=== PATIENT | female | born 1945 | race Caucasian/White ===

== ENCOUNTER 2016-11-10 14:51 | Inpatient (IN) | payer MEDICARE, BC ==
[2016-11-10] VITALS (7 sets, daily range): BP systolic 99–131; BP diastolic 49–67; PULSE 8–82; RESP 16–21; TEMP 97.8–97.9; O2SAT 98–100
[~2016-11-10] VITALS: Ht 162.6 cm; Wt 45.9 kg
[2016-11-10] MEDS ORDERED: SODIUM CHLORIDE 0.9% FLUSH 10 ML FLUSH IVF PRN (16:30)
[2016-11-10] MEDS ORDERED: SODIUM CHLORID 0.9% 500 ML INJ 500 ML IV ONE (16:30)
[2016-11-10] MEDS ORDERED: ONDANSETRON HCL 4 MG/2 ML VIAL IV ONE ×2 (16:30→17:30)
[2016-11-10] MEDS ORDERED: ASPIRIN 81 MG CHEW TAB PO ONE (16:30)
[2016-11-10] MEDS ORDERED: MORPHINE SULFATE 4 MG/ML INJ IV PUSH ONE ×2 (16:30→17:30)
[2016-11-10 16:35] LABS: AUTOMATED NEUTROPHIL # 9.6 TH/MM3 (1.8-7.7); BASOPHIL % 0.3 % (0.0-2.0); HEMATOCRIT 35.1 % (35.0-46.0); HEMO FLAGS DIFF FINAL; LYMPH % 13.1 % (9.0-44.0); LYMPHOCYTE # 1.5 TH/MM3 (1.0-4.8); MEAN CELL VOLUME 93.3 FL (80.0-100.0); MEAN CORPUSCULAR HEMOGLOBIN 31.2 PG (27.0-34.0); MEAN CORPUSCULAR HGB CONC 33.4 % (32.0-36.0); MONO % 4.7 % (0.0-8.0); NEUT % 81.9 % (16.0-70.0); PLATELET COUNT 199 TH/MM3 (150-450); RED BLOOD COUNT 3.76 MIL/MM3 (4.00-5.30); RED CELL DISTRIBUTION WIDTH 12.4 % (11.6-17.2); WHITE BLOOD COUNT 11.6 TH/MM3 (4.0-11.0)
[2016-11-10 16:44] LABS: CHLORIDE 107 MEQ/L (98-107); POTASSIUM 3.4 MEQ/L (3.5-5.1); SODIUM (NA) 144 MEQ/L (136-145)
[2016-11-10 16:48] LABS: ANION GAP 10 MEQ/L (5-15); BICARBONATE 27.2 MEQ/L (21.0-32.0); BLOOD UREA NITROGEN 14 MG/DL (7-18); MAGNESIUM 2.2 MG/DL (1.5-2.5)
[2016-11-10 16:49] LABS: APTT (PATIENT) 22.4 SEC (24.3-30.1); PROTHROMBIN TIME - PATIENT 11.2 SEC (9.8-11.6)
[2016-11-10 16:51] LABS: ALT (GPT) 23 U/L (10-53); AST (GOT) 21 U/L (15-37); GLOMERULAR FILTRATION RATE 86 ML/MIN (>89)
[2016-11-10 16:52] LABS: TOTAL BILIRUBIN ADULT 0.8 MG/DL (0.2-1.0)
[2016-11-10 16:54] LABS: ALKALINE PHOSPHATASE 43 U/L (45-117)
--- NOTE | 2016-11-10 17:14 | RADHPO ---
EXAM DATE/TIME: 11/10/2016 16:24 [facility] COMPARISON: No previous studies available for comparison. INDICATIONS : Chest pain. MEDICAL HISTORY : Carcinoma, breast. SURGICAL HISTORY : Lumpectomy, right breast. ENCOUNTER: Initial ACUITY: 1 day PAIN SCORE: 4/10 LOCATION: Bilateral chest FINDINGS: A single view of the chest demonstrates the lungs to be symmetrically aerated without evidence of mas s, infiltrate or effusion. The cardiomediastinal contours are unremarkable. Osseous structures are intact. Mild degenerative changes and scoliosis of the thoracic spine are noted. CONCLUSION: No acute cardiopulmonary disease. Mild degenerative changes and scoliosis of the thoracic spine Oswaldo Ricks MD on November 10, 2016 at 17:11 Board Certified Radiologist. This report was verified electronically.
[2016-11-10] MEDS ORDERED: DIATRIZOATE MEGLUM/DIATRIZOATE SOD 9 ML CUP ONE (17:20)
--- NOTE | 2016-11-10 17:38 | PD ---
HPI Chief Complaint: Chest Pain Time Seen by Provider: 16:10 Travel History International Travel<30 days: No Contact w/Intl Traveler<30days: No Traveled to known affect area: No History of Present Illness HPI This 71-year-old woman presents to the emergency department complaining of burning chest pain that radiates down into the abdomen. It started around 10 AM this morning. It's been intermittent. Pain the abdomen is more prominent more severe at this time. She's had some nausea nausea with it. Since being in the ED she's had some vomiting as well. No shortness of breath. She otherwise had been feeling generally well and healthy. She has no significant past medical history except for remote breast cancer treated with surgery and radiation. No history of heart problems. Her only abdominal surgical history is a . No other complaints. History Past Medical History Narrative Medical History of breast cancer in the past, treated surgery and radiation Tetanus Vaccination: Unknown Influenza Vaccination: No Social History Alcohol Use: Yes (DAILY 2-3 mixed drinks) Tobacco Use: No Allergies-Medications (Allergen,Severity, Reaction): Coded Allergies: No Known Allergies (Unverified , 11/10/16) Reported Meds & Prescriptions Reported Meds & Active Scripts Active No Active Prescriptions or Reported Medications Review of Systems Except as stated in HPI: all other systems reviewed are Neg Physical Exam Narrative GENERAL: 71 year-old woman, appears uncomfortable but nontoxic. SKIN: Focused skin assessment warm/dry. HEAD: Atraumatic. Normocephalic. CARDIOVASCULAR: Regular rate and rhythm. No murmur appreciated. RESPIRATORY: No accessory muscle use. Clear to auscultation. Breath sounds equal bilaterally. GASTROINTESTINAL: Abdomen is flat and soft. Patient is a prominent right lower quadrant tenderness to palpation. There is no right upper quadrant tenderness. There is negative Frausto's. There is no real epigastric tenderness. MUSCULOSKELETAL: No obvious deformities. No edema. NEUROLOGICAL: Awake and alert. No obvious cranial nerve deficits. Motor grossly within normal limits. Normal speech. PSYCHIATRIC: Appropriate mood and affect; insight and judgment normal. Data Data Last Documented VS Vital Signs Date Time Temp Pulse Resp B/P Pulse Ox O2 Delivery O2 Flow Rate FiO2 11/10/16 18:24 72 18 99/49 100 Room Air 11/10/16 15:06 97.8 Orders Electrocardiogram (11/10/16 15:14) Electrocardiogram (11/10/16 16:20) Complete Blood Count With Diff (11/10/16 16:20) Comprehensive Metabolic Panel (11/10/16 16:20) Magnesium (Mg) (11/10/16 16:20) Prothrombin Time / Inr (Pt) (11/10/16 16:20) Act Partial Throm Time (Ptt) (11/10/16 16:20) Troponin I (11/10/16 16:20) Lipase (11/10/16 16:20) Chest, Single Ap (11/10/16 16:20) Ecg Monitoring (11/10/16 16:20) Bilateral Bp Monitoring (11/10/16 16:20) Iv Access Insert/Monitor (11/10/16 16:20) Oximetry (11/10/16 16:20) Oxygen Administration (11/10/16 16:20) Aspirin Chew (Aspirin Chew) (11/10/16 16:30) Sodium Chloride 0.9% Flush (Ns Flush) (11/10/16 16:30) Sodium Chlorid 0.9% 500 Ml Inj (Ns 500 M (11/10/16 16:30) Ct Abd/Pel W Iv Contrast(Rout) (11/10/16 ) Ed Poc Ultrasound (11/10/16 ) Morphine Inj (Morphine Inj) (11/10/16 16:30) Ondansetron Inj (Zofran Inj) (11/10/16 16:30) Electrocardiogram (11/10/16 ) Oral Contrast - Adult (11/10/16 16:41) Ondansetron Inj (Zofran Inj) (11/10/16 17:30) Morphine Inj (Morphine Inj) (11/10/16 17:30) Diatrizoate Liq ( Gastroview Liq) (11/10/16 17:20) Iohexol 350 Inj (Omnipaque 350 Inj) (11/10/16 18:30) Amylase (11/10/16 16:25) Consult General Surgery (11/10/16 ) Consult Armaan Nfs (11/10/16 ) (Hub Use Only)Inp Phy Cons/Ref (11/10/16 ) Admit Order (Ed Use Only) (11/10/16 ) Labs Laboratory Tests Test 11/10/16 16:25 White Blood Count 11.6 TH/MM3 Red Blood Count 3.76 MIL/MM3 Hemoglobin 11.7 GM/DL Hematocrit 35.1 % Mean Corpuscular Volume 93.3 FL Mean Corpuscular Hemoglobin 31.2 PG Mean Corpuscular Hemoglobin 33.4 % Concent Red Cell Distribution Width 12.4 % Platelet Count 199 TH/MM3 Mean Platelet Volume 8.4 FL Neutrophils (%) (Auto) 81.9 % Lymphocytes (%) (Auto) 13.1 % Monocytes (%) (Auto) 4.7 % Eosinophils (%) (Auto) 0.0 % Basophils (%) (Auto) 0.3 % Neutrophils # (Auto) 9.6 TH/MM3 Lymphocytes # (Auto) 1.5 TH/MM3 Monocytes # (Auto) 0.5 TH/MM3 Eosinophils # (Auto) 0.0 TH/MM3 Basophils # (Auto) 0.0 TH/MM3 CBC Comment DIFF FINAL Differential Comment Prothrombin Time 11.2 SEC Prothromb Time International 1.0 RATIO Ratio Activated Partial 22.4 SEC Thromboplast Time Sodium Level 144 MEQ/L Potassium Level 3.4 MEQ/L Chloride Level 107 MEQ/L Carbon Dioxide Level 27.2 MEQ/L Anion Gap 10 MEQ/L Blood Urea Nitrogen 14 MG/DL Creatinine 0.68 MG/DL Estimat Glomerular Filtration 86 ML/MIN Rate Random Glucose 123 MG/DL Calcium Level 8.6 MG/DL Magnesium Level 2.2 MG/DL Total Bilirubin 0.8 MG/DL Aspartate Amino Transf 21 U/L (AST/SGOT) Alanine Aminotransferase 23 U/L (ALT/SGPT) Alkaline Phosphatase 43 U/L Troponin I LESS THAN 0.02 NG/ML Total Protein 6.2 GM/DL Albumin 3.5 GM/DL Lipase 197 U/L [facility] Medical Decision Making Medical Screen Exam Complete: Yes Emergency Medical Condition: Yes Interpretation(s) My review of EKG: Normal sinus rhythm at a rate of 66, normal axis, normal intervals, some septal Q waves, her initial EKG there appears to be some nonspecific ST changes with inferolateral ST depressions that are slight. Possibly some septal elevations. This was repeated when she was having more pain, and the ST changes are unchanged. Overall this is nonspecific but somewhat concerning for heart disease. LABS: CBC remarkable for mild leukocytosis. CMP is unremarkable. Troponin negative. Lipase is normal. Chest x-ray: Negative. CT abdomen and pelvis: Diffuse enlargement in the pancreatic head with edema predominantly involving the inferior aspect of the pancreatic head as well as large mixed density collection extending inferiorly from the region of the pancreatic head into the lower abdomen measuring 12.2 x 10.3 x 8.1 cm. Findings are suggestive of acute hemorrhagic pancreatitis. Ascites throughout the abdomen and pelvis. Differential Diagnosis The appendicitis, cholecystitis, heart disease, PE, renal lithiasis, other Narrative Course Medical decision making INITIAL: 71-year-old woman presents emergent from with chest and abdominal pain. Right lower quadrant tenderness on exam. Wide differential diagnosis. Bedside ultrasound the gallbladder appears normal. She has no right upper quadrant tenderness. No history of kidney stones. No blood in the urine. Suspicious for appendicitis. We'll get CT the abdomen and pelvis. Heart disease also possible. Reassess. FINAL: 71 year-old woman, chest and abdominal pain, some vomiting. CT markedly abnormal with large mass/collection in the upper abdomen. Radiology favors pancreatitis. I think this is unlikely given the normal lipase. I think she may have an ovarian mass at it worst. Radiologist feels this is pretty high in the abdomen for that although possible. I spoke with Dr. Dennis who reviewed the CT imaging. He will consult on patient. I spoke with Dr. Espinal, will admit the patient. Patient still having vomiting, and significant abdominal pain. Diagnosis Primary Impression: Abdominal pain Qualified Code: R10.31 - Right lower quadrant abdominal pain Additional Impression: Abdominal mass Qualified Code: R19.05 - Periumbilical mass Admitting Information Admitting Physician Requests: Observation Scripts No Active Prescriptions or Reported Meds Chris Price MD November 10, 2016 17:38
[2016-11-10] MEDS ORDERED: IOHEXOL 350 MG/ML 10 ML VIAL (for RAD DIAG) IV ONE (18:30)
--- NOTE | 2016-11-10 19:07 | RADHPO ---
EXAM DATE/TIME: 11/10/2016 18:22 [facility] COMPARISON: No previous studies available for comparison. INDICATIONS : Right lower quadrant pain. IV CONTRAST: 100 cc Omnipaque 350 (iohexol) IV ORAL CONTRAST: Partial prescribed oral contrast ingested. RADIATION DOSE: 5.42 CTDIvol (mGy) MEDICAL HISTORY : Carcinoma, breast. SURGICAL HISTORY : None. ENCOUNTER: Initial ACUITY: 1 day PAIN SCALE: 4/10 LOCATION: Bilateral abdomen. TECHNIQUE: Volumetric scanning of the abdomen and pelvis was performed. Using automated exposure control and ad justment of the mA and/or kV according to patient size, radiation dose was kept as low as reasonably achievable to obtain optimal diagnostic quality images. FINDINGS: There is evidence of diffuse enlargement of the pancreatic head with extensive edema involving the pa ncreatic head predominantly the inferior aspect of the pancreatic head as well as a mixed density col lection extending inferiorly measuring 10.3 x 12.2 x 8.1 cm. The findings suggest acute hemorrhagic pancreatitis with large hemorrhagic or phlegmonous collection extending inferiorly. There is also as cites extending throughout the abdomen and pelvis. Correlation with amylase is recommended to confir m acute pancreatitis. The liver, gallbladder, spleen, adrenal glands and kidneys are unremarkable. The abdominal aorta and inferior vena cava are unremarkable. No significant lymphadenopathy is noted. The urinary bladder is unremarkable. The uterus is also unremarkable. The visualized lung bases are clear. Degenerativ e changes are noted within the lumbar spine. The findings were called to Dr. Price at 1850 hours on . CONCLUSION: 1. Diffuse enlargement involving the pancreatic head with edema predominantly involving the inferior aspect of the pancreatic head as well as large mixed density collection extending inferiorly from th e region of the pancreatic head into the lower abdomen measuring 12.2 x 10.3 x 8.1 cm. The findings are suggestive of acute hemorrhagic pancreatitis. Correlation with amylase level is suggested for co nfirmation. 2. Ascites throughout the abdomen and pelvis. 3. Dr. Price was called with the findings of the examination at 1850 hours on 11/10/2016. Oswaldo Ricks MD on November 10, 2016 at 18:48 Board Certified Radiologist. This report was verified electronically.
[2016-11-10 19:42] LABS: AMYLASE 71 U/L (25-115)
[2016-11-10] MEDS: SODIUM CHLOR 0.9% 1000 ML INJ 1,000 ML IV SCH (20:41)
[2016-11-10] MEDS ORDERED: BISACODYL 10 MG SUPP RECTAL PRN (20:45)
[2016-11-10] MEDS ORDERED: ACETAMINOPHEN 325 MG TAB PO PRN (20:45)
[2016-11-10] MEDS: SODIUM CHLORIDE 0.9% FLUSH 10 ML FLUSH IV FLUSH SCH (21:00)
[2016-11-10] MEDS: SODIUM CHLORIDE 0.9% FLUSH 10 ML FLUSH IV FLUSH PRN (22:35)
[2016-11-10] MEDS: ONDANSETRON HCL 4 MG/2 ML VIAL IVP PRN (22:36)
[2016-11-11 04:33] VITALS: BP 102/52; PULSE 90; RESP 19; TEMP 97.8; O2SAT 99
[2016-11-11 06:02] LABS: ALT (GPT) 21 U/L (10-53); AMYLASE 51 U/L (25-115); ANION GAP 9 MEQ/L (5-15); AST (GOT) 21 U/L (15-37); BLOOD UREA NITROGEN 15 MG/DL (7-18); CHLORIDE 109 MEQ/L (98-107); GLOMERULAR FILTRATION RATE 87 ML/MIN (>89); POTASSIUM 3.9 MEQ/L (3.5-5.1); SODIUM (NA) 142 MEQ/L (136-145)
[2016-11-11 06:03] LABS: PROTHROMBIN TIME - PATIENT 10.8 SEC (9.8-11.6)
[2016-11-11 06:04] LABS: ALKALINE PHOSPHATASE 39 U/L (45-117)
[2016-11-11 06:05] LABS: BASOPHIL % 0.2 % (0.0-2.0); HEMATOCRIT 28.9 % (35.0-46.0); HEMO FLAGS DIFF FINAL; LYMPHOCYTE # 0.8 TH/MM3 (1.0-4.8); MEAN CELL VOLUME 96.1 FL (80.0-100.0); MEAN CORPUSCULAR HEMOGLOBIN 31.7 PG (27.0-34.0); MONO % 7.6 % (0.0-8.0); NEUT % 84.2 % (16.0-70.0); PLATELET COUNT 181 TH/MM3 (150-450); RED BLOOD COUNT 3.01 MIL/MM3 (4.00-5.30); RED CELL DISTRIBUTION WIDTH 13.1 % (11.6-17.2); WHITE BLOOD COUNT 10.6 TH/MM3 (4.0-11.0)
[2016-11-11] MEDS: SODIUM CHLOR 0.9% 1000 ML INJ 1,000 ML IV SCH ×2 (06:39→16:32)
[2016-11-11 08:01] VITALS: BP 112/56; PULSE 83; RESP 18; O2SAT 98
[2016-11-11] MEDS: SODIUM CHLORIDE 0.9% FLUSH 10 ML FLUSH IV FLUSH SCH ×2 (09:00→21:00)
[2016-11-11] MEDS ORDERED: LORazepam 1 MG TAB PO PRN (10:15)
[2016-11-11] MEDS ORDERED: FLUMAZENIL 0.5 MG/5 ML VIAL IV PUSH PRN (10:15)
[2016-11-11] MEDS ORDERED: LORazepam 2 MG/ML VIAL IV PUSH PRN ×4 (10:15)
[2016-11-11] MEDS ORDERED: PANTOPRAZOLE SODIUM 40 MG VIAL IV PUSH ONE (10:15)
[2016-11-11] MEDS ORDERED: LORazepam 2 MG TAB PO PRN (10:15)
--- NOTE | 2016-11-11 10:54 | HHI.HP ---
HPI Service [facility] Primary Care Physician Smitha Aleman MD Admission Diagnosis abdominal pain, vomiting, abdominal mass Diagnoses: Chief Complaint: Abdominal pain with associated nausea and vomiting Travel History International Travel<30 Days: No Contact w/Intl Traveler <30 Da: No Traveled to Known Affected Are: No History of Present Illness Mrs. Tyler is a 71-year-old female with a known medical history of right breast cancer, status post lumpectomy and radiation seven years ago, who presented to the ED with complaints of mid-epigastric abdominal pain that started yesterday morning around 10am while patient was at work. Patient reports pain was burning and pressure-like in nature, intermittent throughout the day about a 5-6/10 on pain scale not interfering with her daily work activities. At around 2pm patient noticed the pain to be more constant in nature with associated nausea, becoming a 10/10 on pain scale and seemed to worsen with mobilization. She was immediately brought into ED for assessment. She remembers eating a light breakfast of cereal that morning and feeling normal prior to the pain starting. Since presentation to the ED patient states pain has diminished, status post Morphine IV and Roxicodone. Also patient did have one bout of vomiting last night. Denies any recent fever, chills, shortness of breath, cough, blurry vision, dizziness, diarrhea or blood in stool. Patient also denies any new changes to medications, denies any recent injury or any hot/cold sensitivity. Review of Systems Gastrointestinal: COMPLAINS OF: Abdominal pain, Nausea, Vomiting Except as stated in HPI: all other systems reviewed are Neg Past Family Social History Past Medical History Right breast cancer status post lumpectomy and radiation in 2009. Past Surgical History Tubal ligation x 1 Reported Medications Active No Active Prescriptions or Reported Medications Allergies: Coded Allergies: No Known Allergies (Unverified , 11/10/16) Active Ordered Medications Current Medications Medications (Trade) Dose Ordered Sig/Ankur Route Start Time Stop Time Status Last Admin (NS 1000 ml Inj) 1,000 ml @ 100 mls/hr Q10H IV 11/10/16 20:31 11/11/16 06:39 (NS Flush) 2 ml UNSCH PRN IV FLUSH 11/10/16 20:45 11/10/16 22:35 (NS Flush) 2 ml BID IV FLUSH 11/10/16 21:00 (Zofran Inj) 4 mg Q6H PRN IVP 11/10/16 20:45 11/10/16 22:36 (Dulcolax Supp) 10 mg DAILY PRN RECTAL 11/10/16 20:45 (Tylenol) 650 mg Q6H PRN PO 11/10/16 20:45 (Morphine Inj) 2 mg Q3H PRN IV 11/10/16 20:45 (Roxicodone) 5 mg Q4H PRN PO 11/10/16 20:45 11/10/16 22:37 Family History Paternal medical history significant for NV at the age of 7676 years old. Denies any significant maternal medical history. Social History Patient lives at home with . Denies any past or present tobacco use. Does admit to drinking 2-3 captain ritu and diet cokes at home each night before dinner. Denies any illicit drug use. Physical Exam Vital Signs Vital Signs Date Time Temp Pulse Resp B/P Pulse Ox O2 Delivery O2 Flow Rate FiO2 11/11/16 08:01 83 18 112/56 98 11/11/16 04:33 97.8 90 19 102/52 99 11/10/16 22:07 97.9 78 21 131/60 99 11/10/16 21:28 78 18 99 11/10/16 21:27 78 18 118/53 99 Room Air 11/10/16 19:44 79 18 118/56 100 Room Air 11/10/16 18:24 72 18 99/49 100 Room Air 11/10/16 16:47 68 16 125/67 100 Room Air 11/10/16 16:20 16 98 Room Air 11/10/16 16:20 98 Room Air 11/10/16 15:06 97.8 82 16 116/66 100 Physical Exam GENERAL: Well-nourished, well-developed patient, in no apparent distress. SKIN: No rashes, ecchymoses or lesions. Warm and dry. HEENT: Atraumatic. Normocephalic. Pupils equal round and reactive. Extraocular motions intact. No scleral icterus. No injection or drainage. Nose without bleeding. Throat without erythema, tonsillar hypertrophy or exudate. Uvula midline. Airway patent. NECK: Supple. Trachea midline. No JVD or lymphadenopathy. CARDIOVASCULAR: Regular rate and rhythm. No murmurs appreciated. RESPIRATORY: Clear to auscultation. Breath sounds equal bilaterally. No wheezes , rales, or rhonchi. GASTROINTESTINAL: Abdomen soft, nondistended. Mild tenderness to palpation to right lower quadrant. No hepato-splenomegaly, or palpable masses. No guarding. MUSCULOSKELETAL: Extremities without clubbing, cyanosis, or edema. No joint tenderness, effusion, or edema noted. NEUROLOGICAL: Awake and alert. Cranial nerves II through XII intact. Motor and sensory grossly within normal limits. Five out of 5 muscle strength in all muscle groups. Normal speech. Laboratory Laboratory Tests Test 11/10/16 11/11/16 16:25 05:20 White Blood Count 11.6 10.6 Red Blood Count 3.76 3.01 Hemoglobin 11.7 9.5 Hematocrit 35.1 28.9 Mean Corpuscular Volume 93.3 96.1 Mean Corpuscular Hemoglobin 31.2 31.7 Mean Corpuscular Hemoglobin 33.4 33.0 Concent Red Cell Distribution Width 12.4 13.1 Platelet Count 199 181 Mean Platelet Volume 8.4 9.0 Neutrophils (%) (Auto) 81.9 84.2 Lymphocytes (%) (Auto) 13.1 8.0 Monocytes (%) (Auto) 4.7 7.6 Eosinophils (%) (Auto) 0.0 0.0 Basophils (%) (Auto) 0.3 0.2 Neutrophils # (Auto) 9.6 9.0 Lymphocytes # (Auto) 1.5 0.8 Monocytes # (Auto) 0.5 0.8 Eosinophils # (Auto) 0.0 0.0 Basophils # (Auto) 0.0 0.0 CBC Comment DIFF FINAL DIFF FINAL Differential Comment Prothrombin Time 11.2 10.8 Prothromb Time International 1.0 1.0 Ratio Activated Partial 22.4 Thromboplast Time Sodium Level 144 142 Potassium Level 3.4 3.9 Chloride Level 107 109 Carbon Dioxide Level 27.2 24.0 Anion Gap 10 9 Blood Urea Nitrogen 14 15 Creatinine 0.68 0.67 Estimat Glomerular Filtration 86 87 Rate Random Glucose 123 115 Calcium Level 8.6 7.9 Magnesium Level 2.2 Total Bilirubin 0.8 1.0 Aspartate Amino Transf 21 21 (AST/SGOT) Alanine Aminotransferase 23 21 (ALT/SGPT) Alkaline Phosphatase 43 39 Troponin I LESS THAN 0.02 Total Protein 6.2 5.7 Albumin 3.5 3.3 Amylase Level 71 51 Lipase 197 149 Result Diagram: 11/11/16 0520 11/11/16 0520 Imaging Last Impressions Chest X-Ray 11/10/16 1620 Signed Impressions: Service Date/Time: Thursday, November 10, 2016 16:24 - CONCLUSION: No acute cardiopulmonary disease. Mild degenerative changes and scoliosis of the thoracic spine Oswaldo Ricks MD Abdomen/Pelvis CT 11/10/16 0000 Signed Impressions: Service Date/Time: Thursday, November 10, 2016 18:22 - CONCLUSION: 1. Diffuse enlargement involving the pancreatic head with edema predominantly involving the inferior aspect of the pancreatic head as well as large mixed density collection extending inferiorly from the region of the pancreatic head into the lower abdomen measuring 12.2 x 10.3 x 8.1 cm. The findings are suggestive of acute hemorrhagic pancreatitis. Correlation with amylase level is suggested for confirmation. 2. Ascites throughout the abdomen and pelvis. 3. Dr. Price was called with the findings of the examination at 1850 hours on 11/10/2016. Oswaldo Ricks MD Assessment and Plan Assessment and Plan Mrs. Tyler is a 71-year-old female with a known medical history of right breast cancer, status post lumpectomy and radiation seven years ago, who presented to the ED with complaints of mid-epigastric abdominal pain that started yesterday morning around 10am while patient was at work. Patient reports pain was burning and pressure-like in nature, intermittent throughout the day about a 5-6/10 on pain scale. At around 2pm patient noticed the pain to be more constant in nature with associated nausea, becoming a 10/10 on pain scale and seemed to worsen with mobilization and immediately brought into ED for assessment. Abdominal mass: suspect acute hemorrhagic pancreatitis or pancreatic mass with associated abdominal pain, nausea and vomiting. - Abdomen/Pelvis CT reviewed, reveals diffuse enlargement involving the pancreatic head with edema predominantly involving the inferior aspect of the pancreatic head as well as large mixed density collection extending inferiorly from the region of the pancreatic head into the lower abdomen measuring 12.2 x 10.3 x 8.1 cm. The findings are suggestive of acute hemorrhagic pancreatitis; ascites throughout the abdomen and pelvis. - Consult general surgery, appreciate input. - Consult GI, appreciate input. - Keep NPO at this time. - Trend H&H. - Amylase/ Lipase WNL. - Start PPI. Protonix 80 mg IV bolus x 1. Protonix 40 mg IV BID. - Control pain: Roxicodone PO scheduled per pain scale. Morphine IV PRN per pain scale. - Continue IVF NS at 100 ml/hr. Normocytic, normochromic anemia - Hemoglobin 11.7/Hematocrit 35.1 on presentation --> today 11/11 Hematocrit 9.5/Hemoglobin 28.9. - No signs or symptoms of bleeding at this time. - Monitor closely. Mild leukocytosis: WBC 11.6 at presentation, today 11/11 10.6. Afebrile at this time. Monitor. Alcohol use - Place patient on CIWA protocol. - Monitor withdrawal symptoms. Seizure precautions. - Ativan PRN. Nausea and vomiting: Zofran PRN. DVT prophylaxis: SCDs/TEDs Written by Kiarra Barron, acting as scribe for Dr. Fofana on 11/11/16 at 10:39. This note was transcribed by scribe [Kiarra Barron]. I, Dr. Ramone Fofana personally performed the history, physical exam, and medical decision making; and confirmed the accuracy of the information in the transcribed note. Authenticated by Dr. Ramone Fofana on 11/13/16 at 09:10. Code Status Full code Discussed Condition With Patient Kiarra Barron November 11, 2016 10:54 Ramone Fofana MD November 13, 2016 09:10
[2016-11-11 11:53] LABS: REVIEW FLAG FINAL
--- NOTE | 2016-11-11 12:03 | PD.CONS ---
HPI History of Present Illness This is a 71 year old female who presented to the ER for severe epigastric abdominal pain. Patient had felt mild epigastric pain in the morning and then the pain progressively worsened by the early afternoon. Abdominal pain was associated with nausea and vomiting. Denies hematemesis or hematochezia. Report she was having normal BM. Today patient states epigastric pain has improved. Continues to have some nausea today, but no emesis. Had routine screening colonoscopy [address] Lali Mejia, normal per patient. Never had EGD. Denies GERD symptoms. Patient with history of right breast cancer, s/p lumpectomy and radiation 7 years ago. (Rina Werner) PFSH Past Medical History -Right breast cancer, s/p lumpectomy and radiation in 2009. Past Surgical History -Tubal ligation - x 1 (Rina Werner) Coded Allergies: No Known Allergies (Unverified , 11/10/16) Medications Current Medications Medications (Trade) Dose Ordered Sig/Ankur Route PRN Reason Start Time Stop Time Status Last Admin Dose Admin Sodium Chloride (NS 1000 ml Inj) 1,000 ml @ 100 mls/hr Q10H IV 11/10/16 20:31 11/11/16 06:39 Sodium Chloride (NS Flush) 2 ml UNSCH PRN IV FLUSH FLUSH AFTER USING IV ACCESS 11/10/16 20:45 11/10/16 22:35 Sodium Chloride (NS Flush) 2 ml BID IV FLUSH 11/10/16 21:00 Ondansetron HCl (Zofran Inj) 4 mg Q6H PRN IVP NAUSEA OR VOMITING 11/10/16 20:45 11/10/16 22:36 Bisacodyl (Dulcolax Supp) 10 mg DAILY PRN RECTAL CONSTIPATION 11/10/16 20:45 Acetaminophen (Tylenol) 650 mg Q6H PRN PO FEVER/PAIN SCALE 1 TO 2 11/10/16 20:45 Morphine Sulfate (Morphine Inj) 2 mg Q3H PRN IV Pain 6-10 11/10/16 20:45 Oxycodone HCl (Roxicodone) 5 mg Q4H PRN PO PAIN SCALE 3 TO 5 11/10/16 20:45 11/10/16 22:37 Flumazenil (Romazicon Inj) 0.2 mg Q1M PRN IV PUSH SEE LABEL COMMENTS 11/11/16 10:15 Lorazepam (Ativan) 1 mg Q4H PRN PO CIWA 8 - 10 11/11/16 10:15 Lorazepam (Ativan Inj) 1 mg Q4H PRN IV PUSH CIWA 8 - 10 11/11/16 10:15 Lorazepam (Ativan) 2 mg Q2H PRN PO CIWA 11-14 11/11/16 10:15 Lorazepam (Ativan Inj) 2 mg Q2H PRN IV PUSH CIWA 11-14 11/11/16 10:15 Lorazepam (Ativan Inj) 2 mg Q1H PRN IV PUSH CIWA 15-20 11/11/16 10:15 Lorazepam (Ativan Inj) 2 mg Q15M PRN IV PUSH CIWA > 20 11/11/16 10:15 Pantoprazole Sodium (Protonix Inj) 40 mg Q12H IV PUSH 11/11/16 22:00 Family History OR (paternal) Social History Tobacco: Denies ETOH: 2-3 captain ritu and diet coke drinks per night Illicit Drugs: Denies Patient lives at home with . (Rina Werner) Review of Systems Constitutional: DENIES: Diaphoretic episodes, Fatigue, Fever, Weight gain, Weight loss, Chills, Dizziness, Change in appetite, Night Sweats Endocrine: DENIES: Polydipsia, Polyuria Eyes: DENIES: Blurred vision, Photosensitivity, Double Vision Ears, nose, mouth, throat: DENIES: Hearing loss, Vertigo, Oral lesions, Throat pain, Hoarseness Respiratory: DENIES: Cough, Wheezing, Hemoptysis, Sputum production, Shortness of breath Cardiovascular: DENIES: Chest pain, Palpitations, Syncope, Lower Extremity Edema, Orthopnea, Claudication Gastrointestinal: COMPLAINS OF: Abdominal pain, Nausea, Vomiting, DENIES: Black stools, Bloody stools, Constipation, Diarrhea, Difficulty Swallowing, Anorexia, Odynophagia, Swelling of Abdomen, Heartburn, Hematemesis Genitourinary: DENIES: Urinary frequency, Urinary incontinence, Urgency, Hematuria, Dysuria, Nocturia Musculoskeletal: DENIES: Joint pain, Muscle aches, Stiffness, Joint Swelling, Back pain, Neck pain Integumentary: DENIES: Abnormal pigmentation, Nail changes, Pruritus, Rash, Jaundice Hematologic/lymphatic: DENIES: Bruising, Lymphadenopathy Immunologic/allergic: DENIES: Eczema, Urticaria Neurologic: DENIES: Abnormal gait, Headache, Localized weakness, Paresthesias Psychiatric: DENIES: Anxiety, Confusion, Mood changes, Depression, Agitation, Suicidal Ideation (Rina Werner) GI Exam Vitals I&O Vital Signs Date Time Temp Pulse Resp B/P Pulse Ox O2 Delivery O2 Flow Rate FiO2 11/11/16 08:01 83 18 112/56 98 11/11/16 04:33 97.8 90 19 102/52 99 11/10/16 22:07 97.9 78 21 131/60 99 11/10/16 21:28 78 18 99 11/10/16 21:27 78 18 118/53 99 Room Air 11/10/16 19:44 79 18 118/56 100 Room Air 11/10/16 18:24 72 18 99/49 100 Room Air 11/10/16 16:47 68 16 125/67 100 Room Air 11/10/16 16:20 16 98 Room Air 11/10/16 16:20 98 Room Air 11/10/16 15:06 97.8 82 16 116/66 100 Imaging Last Impressions Chest X-Ray 11/10/16 1620 Signed Impressions: Service Date/Time: Thursday, November 10, 2016 16:24 - CONCLUSION: No acute cardiopulmonary disease. Mild degenerative changes and scoliosis of the thoracic spine Oswaldo Ricks MD Abdomen/Pelvis CT 11/10/16 0000 Signed Impressions: Service Date/Time: Thursday, November 10, 2016 18:22 - CONCLUSION: 1. Diffuse enlargement involving the pancreatic head with edema predominantly involving the inferior aspect of the pancreatic head as well as large mixed density collection extending inferiorly from the region of the pancreatic head into the lower abdomen measuring 12.2 x 10.3 x 8.1 cm. The findings are suggestive of acute hemorrhagic pancreatitis. Correlation with amylase level is suggested for confirmation. 2. Ascites throughout the abdomen and pelvis. 3. Dr. Price was called with the findings of the examination at 1850 hours on 11/10/2016. Oswaldo Ricks MD Laboratory Test 11/10/16 11/11/16 16:25 05:20 White Blood Count 11.6 TH/MM3 10.6 TH/MM3 Red Blood Count 3.76 MIL/MM3 3.01 MIL/MM3 Hemoglobin 11.7 GM/DL 9.5 GM/DL Hematocrit 35.1 % 28.9 % Mean Corpuscular Volume 93.3 FL 96.1 FL Mean Corpuscular Hemoglobin 31.2 PG 31.7 PG Mean Corpuscular Hemoglobin 33.4 % 33.0 % Concent Red Cell Distribution Width 12.4 % 13.1 % Platelet Count 199 TH/MM3 181 TH/MM3 Mean Platelet Volume 8.4 FL 9.0 FL Neutrophils (%) (Auto) 81.9 % 84.2 % Lymphocytes (%) (Auto) 13.1 % 8.0 % Monocytes (%) (Auto) 4.7 % 7.6 % Eosinophils (%) (Auto) 0.0 % 0.0 % Basophils (%) (Auto) 0.3 % 0.2 % Neutrophils # (Auto) 9.6 TH/MM3 9.0 TH/MM3 Lymphocytes # (Auto) 1.5 TH/MM3 0.8 TH/MM3 Monocytes # (Auto) 0.5 TH/MM3 0.8 TH/MM3 Eosinophils # (Auto) 0.0 TH/MM3 0.0 TH/MM3 Basophils # (Auto) 0.0 TH/MM3 0.0 TH/MM3 CBC Comment DIFF FINAL DIFF FINAL Differential Comment Prothrombin Time 11.2 SEC 10.8 SEC Prothromb Time International 1.0 RATIO 1.0 RATIO Ratio Activated Partial 22.4 SEC Thromboplast Time Sodium Level 144 MEQ/L 142 MEQ/L Potassium Level 3.4 MEQ/L 3.9 MEQ/L Chloride Level 107 MEQ/L 109 MEQ/L Carbon Dioxide Level 27.2 MEQ/L 24.0 MEQ/L Anion Gap 10 MEQ/L 9 MEQ/L Blood Urea Nitrogen 14 MG/DL 15 MG/DL Creatinine 0.68 MG/DL 0.67 MG/DL Estimat Glomerular Filtration 86 ML/MIN 87 ML/MIN Rate Random Glucose 123 MG/DL 115 MG/DL Calcium Level 8.6 MG/DL 7.9 MG/DL Magnesium Level 2.2 MG/DL Total Bilirubin 0.8 MG/DL 1.0 MG/DL Aspartate Amino Transf 21 U/L 21 U/L (AST/SGOT) Alanine Aminotransferase 23 U/L 21 U/L (ALT/SGPT) Alkaline Phosphatase 43 U/L 39 U/L Troponin I LESS THAN 0.02 NG/ML Total Protein 6.2 GM/DL 5.7 GM/DL Albumin 3.5 GM/DL 3.3 GM/DL Amylase Level 71 U/L 51 U/L Lipase 197 U/L 149 U/L Physical Examination HEENT: PERRLA; normocephalic; atraumatic; no jaundice. NECK: Neck is supple, no JVD, no lymphadenopathy. CHEST: CTA CARDIAC: RRR ABDOMEN: Soft, nondistended, mild epigastric tenderness on palpation; no hepatosplenomegaly; bowel sounds x 4 quadrants. EXTREMITIES: No clubbing, cyanosis, or edema. SKIN: Normal; no rash; no jaundice. [employer]: No focal deficits; A&O x3. (Rina Werner) Assessment and Plan Plan ASSESSMENT: -Abdominal mass, hemorrhagic pancreatitis versus pancreatic mass. Abdomen/ Pelvis CT 11/10/16--1. Diffuse enlargement involving the pancreatic head with edema predominantly involving the inferior aspect of the pancreatic head as well as large mixed density collection extending inferiorly from the region of the pancreatic head into the lower abdomen measuring 12.2 x 10.3 x 8.1 cm. The findings are suggestive of acute hemorrhagic pancreatitis. Correlation with amylase level is suggested for confirmation. 2. Ascites throughout the abdomen and pelvis. 3. Dr. Price was called with the findings of the examination at 1850 hours on 11/10/2016. Amylase and lipase normal. -Epigastric pain, Improving. On admission patient with severe epigastric abdominal pain. CT as above. Has mild epigastric tenderness on palpation today. -Nausea/vomiting, patient continues to have nausea, but no emesis today. Taking Zofran as needed. -Anemia, HH 11/11, 9.5/28.9 PLAN: -NPO -HIDA Scan -MRCP -Monitor H+H -PPI -IV Fluids -Supportive care -Further recommendations to follow based on results of above. Patient seen and examined by myself and Dr. Hope and this note is written on her behalf. (Rina Werner) Physician Comments seen, examined agree with above tumor markers if the above work-up negative will need EUS (BratuDalia Bessie Joyce ARNP November 11, 2016 12:03 Dalia Hope MD November 11, 2016 17:38
[2016-11-11 12:08] VITALS: BP 119/59; PULSE 78; RESP 18; O2SAT 96
--- NOTE | 2016-11-11 15:10 | EKG ---
Date Performed: 11/10/2016 Time Performed: 14:54:52 PTAGE: 71 years EKG: Sinus rhythm . Possible septal infarct - age undetermined Since previous tracing, no significant change noted Abno rmal ECG PREVIOUS TRACING : 05/03/1993 16.10 DOCTOR: Jessica Bernabe Interpretating Date/Time 11/11/2016 15:09:38
--- NOTE | 2016-11-11 15:11 | EKG ---
Date Performed: 11/10/2016 Time Performed: 16:29:44 PTAGE: 71 years EKG: Sinus rhythm . Possible septal infarct - age undetermined Since previous tracing, no significant change noted Abno rmal ECG PREVIOUS TRACING : 11/10/2016 14.54 DOCTOR: Jessica Bernabe Interpretating Date/Time 11/11/2016 15:10:01
[2016-11-11 16:18] VITALS: BP 117/55; RESP 18; TEMP 97.9; O2SAT 95
[2016-11-11] MEDS ORDERED: GADODIAMIDE PF 287 MG/ML 10 ML VIAL (for RAD MRI) IV ONE (17:10)
--- NOTE | 2016-11-11 17:32 | RADRPT ---
EXAM DATE/TIME: 11/11/2016 16:54 [facility] COMPARISON: CT ABDOMEN & PELVIS W CONTRAST, November 10, 2016, 18:22. INDICATIONS : Acute hemorrhagic pancreatitis. CONTRAST: 10 cc Omniscan (gadodiamide) IV MEDICAL HISTORY : Carcinoma, breast. SURGICAL HISTORY : section. Tubal ligation. Right breast lumpectomy. ENCOUNTER: Initial ACUITY: 1 day PAIN SCORE: 6/10 LOCATION: Abdomen. TECHNIQUE: Multiplanar, multisequence magnetic resonance imaging of the abdomen was performed. High-resolution 3D dataset was utilized to reconstruct maximum-intensity projection (MIP) images. FINDINGS: INTRAHEPATIC BILE DUCTS: Within normal limits. No significant anatomical variant is present. EXTRAHEPATIC BILE DUCTS: The common bile duct measures 6mm No stone or filling defect is identified. No distal obstructing mas s is visualized. GALLBLADDER: No stones, wall thickening, or pericholecystic fluid. Modest ascites is evident. LIVER: Normal size and signal intensity. No liver lesion is identified. Portal vein is within normal limits . PANCREAS: Edema is present in the pancreas and lesser sac. This may be related to the ascites. There is mild enlargement of the head without focal mass. Body and tail unremarkable. OTHER: The large right abdominal mass does not appear to arise from the pancreas. This appears record the r etroperitoneum or mesenteric in origin most suggestive of tumor of lymph node origin. This does not arise from the pelvis. This appears to be causing compression on the second and t hird portion of the duodenum without obstruction. CONCLUSION: Ascites without gallstone, common duct stone or intrahepatic noted dilatation. Gener alized edema in the pancreas most prominent in the head Large abdominal mass that appears to arise within the root of the mesentery most suspicious for lymph ok. Given its size and appearance the internal necrosis laparoscopic biopsy may be these its way to obtain the diagnosis. Jose Ramon Yanez MD FACR on November 11, 2016 at 17:19 Board Certified Radiologist. This report was verified electronically.
[2016-11-11 17:38] LABS: HEMATOCRIT 24.5 % (35.0-46.0); REVIEW FLAG FINAL
[2016-11-11 20:23] VITALS: BP 137/60; PULSE 90; RESP 20; TEMP 98.5; O2SAT 100
--- NOTE | 2016-11-11 21:03 | MB ---
cc: SHAYY AGUIRRE M.D. DATE OF CONSULTATION: 11/11/2016 REASON FOR CONSULTATION: Patient with a large abdominal/pelvic mass and a previous history of breast cancer. PATIENT PROFILE: The patient is a 71-year white female. She is . She has two children, a daughter and a son. She was born in [place], [place]. She lives in [place]. She has lived in [facility] [place] for 28 years. She is retired. She had worked leasing apartments. She does not smoke. She has two or three drinks per day. Her pastimes are reading, walking and her grandchildren. HISTORY OF PRESENT ILLNESS: The patient is a 71-year-old female who underwent a needle biopsy of the right breast on 05/18/2010 and was found to have an invasive moderately differentiated ductal carcinoma. She subsequently underwent lumpectomy and axillary dissection. She tells me the tumor was small. She received postoperative radiation and was treated with Arimidex for five years, completing the Arimidex in 2015. She was well until yesterday at 03:00 p.m. when she developed pain in the lower chest and upper abdominal area. The pain was of acute onset. She went to the emergency room for the above reason. On 11/10/2016, she had a hemoglobin of 11.7, white count 11,000 and platelets 199,000. Lytes, BUN, creatinine and liver function tests unremarkable. Amylase was 71 and lipase was 197. IMAGING STUDIES: Included a chest x-ray on 11/10/2016 showing no acute cardiopulmonary disease. A CT scan of the abdomen and pelvis dated 11/10/2016 showed a mass measuring 12.2 x 10.3 x 8.1 cm in the area of the pancreas of mixed density extending inferiorly into the lower abdomen and pelvis. There was a suggestion of acute hemorrhage. Originally this was thought to arise from the pancreas. There was evidence of ascites throughout the abdomen and pelvis. The patient underwent a cholangiopancreatography MRI on 11/11/[address] Pablo Yanez. There is ascites without any evidence of a gallstone. There is some generalized edema in the pancreas, most prominent in the head. There is a large abdominal mass that appears to arise within the root of the mesentery most suspicious for lymphoma. There appears to be internal necrosis within the mass. The patient has not lost weight. There has been no fever, night sweats or chills. She has had no abdominal pain prior to this event. Her CBC and platelet count on 11/11 shows a hemoglobin of 8, hematocrit of 24 where she was previously 11.7 indicating that she has lost blood from hemorrhage, and I suspect that the ascites is blood. PAST SURGICAL HISTORY: 1. Right lumpectomy and postop radiation in 2009 followed by five years of Arimidex. 2. section. 3. Tubal ligation. PAST MEDICAL HISTORY: No medical problems except for the previous history of breast cancer dating back to 2009, which she states was a small breast cancer ER and VT +. MEDICATIONS PRIOR TO ADMISSION: None ALLERGIES: None. FAMILY HISTORY: Her mother at the age of 92. Her father of an [place] at 76. She is an only child. Her two children are in good health. REVIEW OF SYSTEMS: She has glasses for distance, but rarely uses them. Hearing is fine. No discomfort in the oropharynx or problems swallowing. No history of chest pain, palpitations. No shortness of breath. No melena or hematochezia or hematemesis. No dysuria, frequency, or hematuria or vaginal bleeding. No bone pain. No headaches or weakness. No skin problems. No psychiatric problems. Her last colonoscopy was [address] Lali Mejia. Her last mammogram was approximately November of 2015. PHYSICAL EXAMINATION: GENERAL: The physical exam reveals a slender well-appearing female. VITAL SIGNS: Blood pressure 117/55, respiratory rate 18, afebrile, 02 saturation 95%. HEAD, EYES, EARS, NOSE, THROAT: Head is normocephalic. The sclerae and conjunctivae are normal. Oropharynx is unremarkable. LYMPHATIC: There is no cervical, supraclavicular, axillary or inguinal adenopathy. BREASTS: Left breast without masses. Right breast shows no masses and no evidence of recurrent breast cancer. HEART: Regular rhythm without murmur or gallop. LUNGS: Clear without rales, wheezes or rhonchi. ABDOMEN: The abdomen is soft. There is fullness in the mid right side of the abdomen. I believe I can feel the mass. There is slight tenderness. EXTREMITIES: No edema. MUSCULOSKELETAL: No bone pain. NEUROLOGIC: No weakness. Cognition and affect are normal. SKIN: Unremarkable. ASSESSMENT: The patient is a 71-year-old female with a history of breast cancer dating back to 2009. Her current presentation is not consistent with recurrent breast cancer. The most likely explanation is a lymphoma. A sarcoma would be much less likely. PLAN: 1. Her CBC needs to be monitored. She may have continued bleeding and need a transfusion. I believe she has bleed into the tumor. 2. I have spoken with Dr. Pablo Yanez and the patient will have a core needle biopsy of the abdominal mass. 3. Her oncologist is Dr. Rajiv Becerra. I called him a few minutes ago, and once we have diagnostic material and she is hemodynamically stable and not bleeding, She can be discharged. He will follow her up and order additional tests and institute the appropriate treatment depending upon the pathologic diagnosis. Above reviewed with the patient and I showed her the images of her Abdominal and Pelvic CT scan. MD MAME Trejo/MELODIE /8:24 PM /8:50 PM SILVIA
[2016-11-11] MEDS: PANTOPRAZOLE SODIUM 40 MG VIAL IV PUSH SCH (21:32)
[2016-11-11] MEDS: SODIUM CHLORIDE 0.9% FLUSH 10 ML FLUSH IV FLUSH PRN (21:32)
[2016-11-11 23:15] LABS: HEMATOCRIT 21.6 % (35.0-46.0); REVIEW FLAG FINAL
[2016-11-12] VITALS (8 sets, daily range): BP systolic 112–140; BP diastolic 53–79; PULSE 78–113; RESP 16–21; TEMP 97.8–98.5; O2SAT 93–100
[2016-11-12] MEDS: SODIUM CHLOR 0.9% 1000 ML INJ 1,000 ML IV SCH ×3 (01:54→20:47)
[2016-11-12] MEDS ORDERED: LIDOCAINE 1%/EPINEPHrine 1:100,000 SOLN 20 ML VIAL ONE (07:24)
[2016-11-12 07:29] LABS: HEMATOCRIT 21.6 % (35.0-46.0); REVIEW FLAG FINAL
[2016-11-12] MEDS ORDERED: MIDAZOLAM HCL 5 MG/5 ML VIAL ONE (07:59)
[2016-11-12] MEDS ORDERED: fentaNYL CITRATE 250 MCG/5 ML AMP ONE (07:59)
[2016-11-12] MEDS ORDERED: THROMBIN (TOPICAL) 5,000 UNIT VIAL ONE (08:08)
[2016-11-12] MEDS ORDERED: GELATIN 12 MM/7 MM FOAM ONE (08:15)
[2016-11-12] MEDS: SODIUM CHLORIDE 0.9% FLUSH 10 ML FLUSH IV FLUSH SCH ×2 (09:00→20:47)
--- NOTE | 2016-11-12 09:35 | RADRPT ---
EXAM DATE/TIME: 11/12/2016 07:58 [facility] COMPARISON: No previous studies available for comparison. INDICATIONS : Abdomen mass. SEDATION TIME: 15 minutes BIOPSY SITE: Right abdomen. MEDICATION(S): 1.) 2 mg midazolam (Versed) IV 2.) 100 mcg fentanyl (Sublimaze) IV DEVICE(S): 1.) 16 gauge Core biopsy needle 2.) 18 gauge BioPince 3.) Gelfoam MEDICAL HISTORY : Carcinoma, breast. SURGICAL HISTORY : None. ENCOUNTER: Initial ACUITY: 1 day PAIN SCORE: 0/10 LOCATION: Right abdomen A total of three core specimen(s) were obtained and sent to the laboratory for pathologic evaluation. PROCEDURE: 1. CT guided abdomen biopsy. 2. Conscious sedation with continuous EKG and oximetry monitoring. 3. EKG and oximetry remained stable throughout the procedure. Prior to the procedure informed consent was obtained. Any appropriate prior imaging studies were rev iewed. Using automated exposure control and adjustment of the mA and/or kV according to patient size, radiat ion dose was kept as low as reasonably achievable to obtain optimal diagnostic quality images. The site was prepped in a sterile fashion. Full sterile technique was used, including cap, mask, danielle rile gloves and gown and a large sterile sheet. Hand hygiene and 2% chlorhexidine and/or betadine/al cohol prep was utilized per protocol for cutaneous antisepsis. The skin and subcutaneous tissues wer e infiltrated with local anesthetic solution. Under CT guidance the 16 gauge blunt was placed down to the margin of the mass. 3 tangential cores w ere obtained using an 18 gauge needle. 4 slides were submitted. Tract was embolized with Gelfoam an d thrombin. Follow-up CT scan reveals no hemorrhage. The patient tolerated the procedure well and there were no complications. The patient was returned to the Radiology Outpatient Unit in stable condition. CONCLUSION: Uncomplicated CT guided biopsy. Preliminary touch prep is only hemorrhage. Flow cytometry, et cetera is pending. Jose Ramon Yanez MD FACR on November 12, 2016 at 9:31 Board Certified Radiologist. This report was verified electronically.
--- NOTE | 2016-11-12 09:35 | MB ---
cc: HIWOTHIPOLITOALBINA DATE OF CONSULTATION: 11/11/2016. REASON FOR CONSULTATION Pancreatic intra-abdominal mass and abdominal pain. PHYSICIAN REQUESTING CONSULTATION Dr. Ana Rosa Brady MD HISTORY OF PRESENT ILLNESS The patient is a 71-year-old female who presented to [facility] with sudden onset of epigastric abdominal pain. The pain did not radiate to her back and never had pain like this before. No nausea, vomiting, diarrhea, constipation, fevers, chills, night sweats or hematemesis or hematochezia. The patient did undergo evaluation in [place] and was found have a large intra-abdominal mass concerning for hemorrhagic pancreatitis. Of note, lipase was normal. The patient was transferred to [facility] for further evaluation, workup, possible surgical consultation. Currently the patient states her pain is well controlled and the patient is hemodynamically stable. The patient of note has history of previous history of breast cancer and no other history of malignancy. REVIEW OF SYSTEMS 12-point review of systems was conducted with the patient and is negative except for the pertinent positives mentioned above in history of present illness. PAST MEDICAL HISTORY History of breast cancer. PAST SURGICAL HISTORY History of breast surgery followed by radiation. ALLERGIES NO KNOWN DRUG ALLERGIES. MEDICATIONS No chronic home medications. FAMILY HISTORY No history of pancreatic disease or malignancy. SOCIAL HISTORY The patient drinks alcohol 1-2 drinks a day. Denies tobacco use or illicit drug use. PHYSICAL EXAMINATION VITAL SIGNS: Within normal limits. Heart rate __ 100 and normotensive, afebrile. GENERAL: Patient is a thin female, in no acute distress. HEENT: Head is normocephalic, atraumatic. Pupils are round, reactive to accommodation and light. Sclerae is anicteric. Mucous membranes are moist. NECK: Neck is supple. No JVD. CHEST: Lungs are clear to auscultation bilaterally. Nonlabored breathing pattern. HEART: Regular rate and rhythm. ABDOMEN: Soft, tender to palpation in the epigastric area without rebound tenderness or focal peritonitis. Mild fullness in the epigastric concerning for mass but no ascites, no organomegaly. No surgical scars or hernias. BACK: No CVA tenderness. EXTREMITIES: No clubbing, cyanosis or edema. NEUROLOGIC: The patient is awake, alert and oriented x 3, moving all extremities non-focally, cranial nerves II-XII are grossly intact. ASSESSMENT/PLAN The patient is a 71-year-old female with a large intra-abdominal mass and epigastric abdominal pain. We did note gastroenterology consultation and recommended workup with HIDA scan and MRCP. I agree with this as a good plan for initial workup. The differential diagnosis includes inflammatory versus a neoplasm, but do favor neoplasm, possible soft tissue or GIST tumor versus lymphoma is very likely. We will again follow up imaging workup and if further testing is concerning for malignancy will recommend consulting medical oncology and obtaining tissue diagnosis. Continue with current management, will follow along with the patient. MD IRMA Singh/TLL /8:58 AM /9:15 AM
[2016-11-12] MEDS: PANTOPRAZOLE SODIUM 40 MG VIAL IV PUSH SCH ×2 (11:09→20:48)
[2016-11-12 11:18] LABS: HEMATOCRIT 22.8 % (35.0-46.0); REVIEW FLAG FINAL
--- NOTE | 2016-11-12 11:27 | HHI.PR ---
Subjective Remarks Follow-up for abdominal pain/mass. The patient is seen after mass biopsy with IR today. The patient has no acute complaints this time. Abdominal pain has significantly improved. She hasn't been able to eat yet since she's been in the hospital, but would like to try. She denies any nausea. She denies any lightheadedness, dizziness, chest pain, or shortness of breath. She is hoping to go home soon to follow-up with her previous oncologist Dr. Becerra. She denies any dark or bloody stools. Objective Vitals Vital Signs Date Time Temp Pulse Resp B/P Pulse Ox O2 Delivery O2 Flow Rate FiO2 11/12/16 10:18 98.2 88 20 112/53 100 11/12/16 09:30 93 16 136/79 94 11/12/16 09:00 100 18 140/71 94 11/12/16 08:45 98.0 113 18 138/74 93 11/12/16 05:29 98.5 80 21 139/60 98 11/12/16 00:13 88 20 126/58 98 11/11/16 20:23 98.5 90 20 137/60 100 11/11/16 16:18 97.9 18 117/55 95 11/11/16 12:08 78 18 119/59 96 Result Diagram: 11/12/16 1056 11/11/16 0520 Imaging Last Impressions Abdomen Biopsy CT 11/12/16 0600 Signed Impressions: Service Date/Time: Saturday, November 12, 2016 07:58 - CONCLUSION: Uncomplicated CT guided biopsy. Preliminary touch prep is only hemorrhage. Flow cytometry, et cetera is pending. Jose Ramon Yanez MD FACR Cholangiopancreatography MRI 11/11/16 0000 Signed Impressions: Service Date/Time: Friday, November 11, 2016 16:54 - CONCLUSION: Ascites without gallstone, common duct stone or intrahepatic noted dilatation. Generalized edema in the pancreas most prominent in the head Large abdominal mass that appears to arise within the root of the mesentery most suspicious for lymphoma. Given its size and appearance the internal necrosis laparoscopic biopsy may be these its way to obtain the diagnosis. Jose Ramon Yanez MD FACR Chest X-Ray 11/10/16 1620 Signed Impressions: Service Date/Time: Thursday, November 10, 2016 16:24 - CONCLUSION: No acute cardiopulmonary disease. Mild degenerative changes and scoliosis of the thoracic spine Oswaldo Ricks MD Abdomen/Pelvis CT 11/10/16 0000 Signed Impressions: Service Date/Time: Thursday, November 10, 2016 18:22 - CONCLUSION: 1. Diffuse enlargement involving the pancreatic head with edema predominantly involving the inferior aspect of the pancreatic head as well as large mixed density collection extending inferiorly from the region of the pancreatic head into the lower abdomen measuring 12.2 x 10.3 x 8.1 cm. The findings are suggestive of acute hemorrhagic pancreatitis. Correlation with amylase level is suggested for confirmation. 2. Ascites throughout the abdomen and pelvis. 3. Dr. Price was called with the findings of the examination at 1850 hours on 11/10/2016. Oswaldo Ricks MD Objective Remarks GENERAL: Well-developed well-nourished. In no acute distress. SKIN: Warm and dry. No lesions noted. HEENT: Normocephalic. Pupils equal and round. Mucous membranes pink and moist. CARDIOVASCULAR: Regular rate and rhythm. No murmur appreciated. RESPIRATORY: No accessory muscle use. Clear to auscultation. Breath sounds equal bilaterally. GASTROINTESTINAL: Abdomen soft, TTP to the right of the umbilicus, nondistended. Bowel sounds x4. MUSCULOSKELETAL: No obvious deformities. No clubbing or cyanosis. No edema. NEUROLOGICAL: Awake and alert. No focal neurological deficits. Moves upper and lower extremities spontaneously. Normal speech. PSYCHIATRIC: Appropriate mood and affect; insight and judgment normal. A/P Assessment and Plan Mrs. Tyler is a 71-year-old female with a known medical history of right breast cancer, status post lumpectomy and radiation seven years ago, who presented to the ED with complaints of mid-epigastric abdominal pain that started yesterday morning around 10am while patient was at work. Patient reports pain was burning and pressure-like in nature, intermittent throughout the day about a 5-6/10 on pain scale. At around 2pm patient noticed the pain to be more constant in nature with associated nausea, becoming a 10/10 on pain scale and seemed to worsen with mobilization and immediately brought into ED for assessment. Abdominal mass: Suspect lymphoma. Associated abdominal pain, nausea and vomiting. Reviewed: Abdomen/Pelvis CT reveals diffuse enlargement involving the pancreatic head with edema predominantly involving the inferior aspect of the pancreatic head as well as large mixed density collection extending inferiorly from the region of the pancreatic head into the lower abdomen measuring 12.2 x 10.3 x 8.1 cm. The findings are suggestive of acute hemorrhagic pancreatitis; ascites throughout the abdomen and pelvis. MRCP showed ascites, generalized edema in the pancreas most prominent in the head, large abdominal mass that appears to arise within the root of the mesentery and suspicious for lymphoma, internal necrosis of the mass. Amylase and lipase within normal limits. - Consult general surgery, GI, and medical oncology, appreciate specialist input. - S/P CT-guided biopsy of the mass - Trend H&H. - Start PPI. Protonix 40 mg IV BID. - Control pain: Roxicodone PO scheduled per pain scale. Morphine IV PRN per pain scale. - Continue IVF NS at 100 ml/hr until tolerating diet. Normocytic, normochromic anemia: Suspect secondary to hemorrhagic mass. Reviewed: Hemoglobin 11.7, no previous labs for comparison. Hemoglobin trended down to 7.2. Currently 7.7. Vital signs stable. Mass biopsy with preliminary touch prep of only hemorrhage. - Monitor serial H&H - Check stool Hemoccult and fibrinogen. - Transfuse if indicated Mild leukocytosis: WBC 11.6 at admission, repeat 10.6. Afebrile. Monitor. Alcohol use: 2-3 drinks daily - CIWA protocol. - Monitor withdrawal symptoms. Seizure precautions. Nausea and vomiting: Zofran PRN. DVT prophylaxis: SCDs/TEDs Discussed with Dr. Fofana Discharge Planning Follow-up specialist recommendations. Tim Holguin November 12, 2016 11:27
[2016-11-12 14:08] LABS: HEMATOCRIT 22.8 % (35.0-46.0); MEAN CELL VOLUME 94.8 FL (80.0-100.0); RED BLOOD COUNT 2.41 MIL/MM3 (4.00-5.30); WHITE BLOOD COUNT 7.2 TH/MM3 (4.0-11.0)
[2016-11-12 14:09] LABS: MEAN CORPUSCULAR HGB CONC 33.8 % (32.0-36.0); PLATELET COUNT 130 TH/MM3 (150-450)
[2016-11-12 19:46] LABS: HEMATOCRIT 21.9 % (35.0-46.0); REVIEW FLAG FINAL
[2016-11-13] VITALS (8 sets, daily range): BP systolic 112–150; BP diastolic 54–76; PULSE 67–93; RESP 16–20; TEMP 97–99; O2SAT 97–100
[2016-11-13 05:35] LABS: AUTOMATED NEUTROPHIL # 3.5 TH/MM3 (1.8-7.7); BASOPHIL % 0.5 % (0.0-2.0); EOSINOPHIL % 0.7 % (0.0-4.0); HEMATOCRIT 21.7 % (35.0-46.0); HEMO FLAGS DIFF FINAL; LYMPH % 28.1 % (9.0-44.0); LYMPHOCYTE # 1.6 TH/MM3 (1.0-4.8); MEAN CELL VOLUME 94.5 FL (80.0-100.0); MEAN CORPUSCULAR HEMOGLOBIN 31.5 PG (27.0-34.0); MEAN CORPUSCULAR HGB CONC 33.3 % (32.0-36.0); MONO % 8.6 % (0.0-8.0); NEUT % 62.1 % (16.0-70.0); PLATELET COUNT 121 TH/MM3 (150-450); RED CELL DISTRIBUTION WIDTH 12.9 % (11.6-17.2); WHITE BLOOD COUNT 5.6 TH/MM3 (4.0-11.0)
[2016-11-13 06:06] LABS: BICARBONATE 27.1 MEQ/L (21.0-32.0); POTASSIUM 3.3 MEQ/L (3.5-5.1)
[2016-11-13] MEDS: SODIUM CHLOR 0.9% 1000 ML INJ 1,000 ML IV SCH (06:53)
[2016-11-13] MEDS: NS + KCL 20 MEQ INJ 1,000 ML IV SCH ×3 (08:00→20:28)
[2016-11-13] MEDS: SODIUM CHLORIDE 0.9% FLUSH 10 ML FLUSH IV FLUSH SCH ×2 (09:00→20:41)
--- NOTE | 2016-11-13 09:05 | HHI.PR ---
Subjective Remarks Follow-up for abdominal pain/mass. The patient is going for mass biopsy with general surgery today. The patient has no acute complaints this time. She was able to eat a little bit yesterday with with no nausea. She only has abdominal pain when her abdomen is touched. She denies any lightheadedness, dizziness, chest pain, shortness of breath. Has been ambulatory. Objective Vitals Vital Signs Date Time Temp Pulse Resp B/P Pulse Ox O2 Delivery O2 Flow Rate FiO2 11/13/16 07:58 99.0 93 20 117/54 100 11/13/16 04:31 99.0 85 20 117/56 97 11/13/16 00:03 98.3 87 20 112/56 99 11/12/16 19:13 97.8 88 20 118/55 100 11/12/16 15:11 97.9 78 21 127/75 100 11/12/16 10:18 98.2 88 20 112/53 100 11/12/16 09:30 93 16 136/79 94 I/O 11/12/16 11/12/16 11/12/16 11/13/16 11/13/16 11/13/16 07:00 15:00 23:00 07:00 15:00 23:00 Intake Total 560 ml Balance 560 ml Intake Oral 560 ml # Voids 2 # Bowel Movements 0 Result Diagram: 11/13/16 0507 11/13/16 0507 Imaging Last Impressions Abdomen Biopsy CT 11/12/16 0600 Signed Impressions: Service Date/Time: Saturday, November 12, 2016 07:58 - CONCLUSION: Uncomplicated CT guided biopsy. Preliminary touch prep is only hemorrhage. Flow cytometry, et cetera is pending. Jose Ramon Yanez MD FACR Cholangiopancreatography MRI 11/11/16 0000 Signed Impressions: Service Date/Time: Friday, November 11, 2016 16:54 - CONCLUSION: Ascites without gallstone, common duct stone or intrahepatic noted dilatation. Generalized edema in the pancreas most prominent in the head Large abdominal mass that appears to arise within the root of the mesentery most suspicious for lymphoma. Given its size and appearance the internal necrosis laparoscopic biopsy may be these its way to obtain the diagnosis. Jose Ramon Yanez MD FACR Chest X-Ray 11/10/16 1620 Signed Impressions: Service Date/Time: Thursday, November 10, 2016 16:24 - CONCLUSION: No acute cardiopulmonary disease. Mild degenerative changes and scoliosis of the thoracic spine Oswaldo Ricks MD Abdomen/Pelvis CT 11/10/16 0000 Signed Impressions: Service Date/Time: Thursday, November 10, 2016 18:22 - CONCLUSION: 1. Diffuse enlargement involving the pancreatic head with edema predominantly involving the inferior aspect of the pancreatic head as well as large mixed density collection extending inferiorly from the region of the pancreatic head into the lower abdomen measuring 12.2 x 10.3 x 8.1 cm. The findings are suggestive of acute hemorrhagic pancreatitis. Correlation with amylase level is suggested for confirmation. 2. Ascites throughout the abdomen and pelvis. 3. Dr. Price was called with the findings of the examination at 1850 hours on 11/10/2016. Oswaldo Ricks MD Objective Remarks GENERAL: Well-developed well-nourished. In no acute distress. SKIN: Warm and dry. No lesions noted. HEENT: Normocephalic. Pupils equal and round. Mucous membranes pink and moist. CARDIOVASCULAR: Regular rate and rhythm. No murmur appreciated. RESPIRATORY: No accessory muscle use. Clear to auscultation. Breath sounds equal bilaterally. GASTROINTESTINAL: Abdomen soft, tender to touch, nondistended. Bowel sounds x4. MUSCULOSKELETAL: No obvious deformities. No clubbing or cyanosis. No edema. NEUROLOGICAL: Awake and alert. No focal neurological deficits. Moves upper and lower extremities spontaneously. Normal speech. PSYCHIATRIC: Appropriate mood and affect; insight and judgment normal. A/P Assessment and Plan Mrs. Tyler is a 71-year-old female with a known medical history of right breast cancer, status post lumpectomy and radiation seven years ago, who presented to the ED with complaints of mid-epigastric abdominal pain that started yesterday morning around 10am while patient was at work. Patient reports pain was burning and pressure-like in nature, intermittent throughout the day about a 5-6/10 on pain scale. At around 2pm patient noticed the pain to be more constant in nature with associated nausea, becoming a 10/10 on pain scale and seemed to worsen with mobilization and immediately brought into ED for assessment. Abdominal mass: Suspect lymphoma. Associated abdominal pain, nausea and vomiting. Reviewed: Abdomen/Pelvis CT reveals diffuse enlargement involving the pancreatic head with edema predominantly involving the inferior aspect of the pancreatic head as well as large mixed density collection extending inferiorly from the region of the pancreatic head into the lower abdomen measuring 12.2 x 10.3 x 8.1 cm. The findings are suggestive of acute hemorrhagic pancreatitis; ascites throughout the abdomen and pelvis. MRCP showed ascites, generalized edema in the pancreas most prominent in the head, large abdominal mass that appears to arise within the root of the mesentery and suspicious for lymphoma, internal necrosis of the mass. Amylase and lipase within normal limits. - Consult general surgery, GI, and medical oncology, appreciate specialist input. - S/P CT-guided biopsy of the mass - Trend H&H. - Started PPI. Protonix 40 mg IV BID. - Control pain: Roxicodone PO scheduled per pain scale. Morphine IV PRN per pain scale. - Continue IVF NS at 100 ml/hr until tolerating diet. - Going for biopsy with general surgery today Normocytic, normochromic anemia: Suspect secondary to hemorrhagic mass. Reviewed: Hemoglobin 11.7, no previous labs for comparison. Hemoglobin trended down to 7.2. Vital signs stable. Mass biopsy with preliminary touch prep of only hemorrhage. Fibrinogen within normal limits. - Monitor serial H&H - Check stool Hemoccult - Transfuse if indicated Mild leukocytosis: WBC 11.6 at admission, repeat 10.6. Afebrile. Monitor. Alcohol use: 2-3 drinks daily - CIWA protocol. - Monitor withdrawal symptoms. Seizure precautions. Nausea and vomiting: Zofran PRN. DVT prophylaxis: SCDs/TEDs Discharge Planning Follow-up specialist recommendations. Tim Holguin November 13, 2016 09:05
[2016-11-13] MEDS: PANTOPRAZOLE SODIUM 40 MG VIAL IV PUSH SCH ×2 (10:00→22:00)
[2016-11-13 11:11] LABS: HEMATOCRIT 23.9 % (35.0-46.0); REVIEW FLAG FINAL
[2016-11-13] MEDS ORDERED: ONDANSETRON HCL 4 MG/2 ML VIAL IV PUSH ONE (12:00)
[2016-11-13] MEDS ORDERED: NEOSTIGMINE 3 MG/3 ML SYR IV ONE (12:00)
[2016-11-13] MEDS ORDERED: PROPOFOL 200 MG/20 ML AMP IV ONE (12:00)
--- NOTE | 2016-11-13 13:30 | PD.ONC.PN ---
Subjective Subjective Remarks Tmax 99.0 overnight. Pt resting in bed with visitors present. Denies any acute complaints. Looking forward to getting endoscopy over with. Objective Data Date Time Temp Pulse Resp B/P Pulse Ox O2 Delivery O2 Flow Rate FiO2 11/13/16 11:28 98.4 85 16 129/62 100 11/13/16 07:58 99.0 93 20 117/54 100 11/13/16 04:31 99.0 85 20 117/56 97 11/13/16 00:03 98.3 87 20 112/56 99 11/12/16 19:13 97.8 88 20 118/55 100 11/12/16 15:11 97.9 78 21 127/75 100 Result Diagram: 11/13/16 1043 11/13/16 0507 Laboratory Results Laboratory Tests Test 11/12/16 11/12/16 11/13/16 11/13/16 14:53 19:24 05:07 10:43 Fibrinogen 306 mg/dL Hemoglobin 7.5 GM/DL 7.2 GM/DL 7.8 GM/DL Hematocrit 21.9 % 21.7 % 23.9 % White Blood Count 5.6 TH/MM3 Red Blood Count 2.30 MIL/MM3 Mean Corpuscular Volume 94.5 FL Mean Corpuscular Hemoglobin 31.5 PG Mean Corpuscular Hemoglobin 33.3 % Concent Red Cell Distribution Width 12.9 % Platelet Count 121 TH/MM3 Mean Platelet Volume 8.7 FL Neutrophils (%) (Auto) 62.1 % Lymphocytes (%) (Auto) 28.1 % Monocytes (%) (Auto) 8.6 % Eosinophils (%) (Auto) 0.7 % Basophils (%) (Auto) 0.5 % Neutrophils # (Auto) 3.5 TH/MM3 Lymphocytes # (Auto) 1.6 TH/MM3 Monocytes # (Auto) 0.5 TH/MM3 Eosinophils # (Auto) 0.0 TH/MM3 Basophils # (Auto) 0.0 TH/MM3 CBC Comment DIFF FINAL Differential Comment Sodium Level 144 MEQ/L Potassium Level 3.3 MEQ/L Chloride Level 110 MEQ/L Carbon Dioxide Level 27.1 MEQ/L Anion Gap 7 MEQ/L Blood Urea Nitrogen 6 MG/DL Creatinine 0.45 MG/DL Estimat Glomerular Filtration 138 ML/MIN Rate Random Glucose 90 MG/DL Calcium Level 7.7 MG/DL Administered Medications Medications (Trade) Dose Ordered Sig/Ankur Route PRN Reason Start Time Stop Time Status Last Admin Dose Admin Sodium Chloride (NS Flush) 2 ml UNSCH PRN IV FLUSH FLUSH AFTER USING IV ACCESS 11/10/16 20:45 11/11/16 21:32 Sodium Chloride (NS Flush) 2 ml BID IV FLUSH 11/10/16 21:00 11/12/16 09:00 Ondansetron HCl (Zofran Inj) 4 mg Q6H PRN IVP NAUSEA OR VOMITING 11/10/16 20:45 11/10/16 22:36 Oxycodone HCl (Roxicodone) 5 mg Q4H PRN PO PAIN SCALE 3 TO 5 11/10/16 20:45 11/10/16 22:37 Pantoprazole Sodium (Protonix Inj) 40 mg Q12H IV PUSH 11/11/16 22:00 11/12/16 20:48 Objective Remarks GENERAL: Older female, sitting up in bed in no distress. SKIN: Warm and dry. Abdomen with bandage over biopsy site. No oozing. HEAD: Normocephalic. EYES: No injection or drainage. NECK: Supple, trachea midline. CARDIOVASCULAR: +S1/S2. RESPIRATORY: Clear posteriorly. GASTROINTESTINAL: Abdomen somewhat firm. Tender to palpation to lower quadrants. EXTREMITIES: No cyanosis, or edema. NEUROLOGICAL: No obvious focal deficit. Awake, alert, and oriented x3. Assessment/Plan Problem List: (1) Abdominal mass Status: Acute Plan: -- Pt going today for endoscopy to obtain tissue biopsy -- Likely a lymphoma or possibly sarcoma Assessment 71 y/o female admitted with nausea and abdominal pain and was found to have a mass. Plan 1. She is going down for surgery today at 4pm for endoscopy with tissue sample. 2. There is concern for continued bleeding in abdomen. Will monitor CBC. 3. Her hgb improved slightly to 7.8 today. I discussed with her giving her 2 units of PRBC's after the surgery today to give her a boost before she leaves. She is agreeable to that. 4. Will plan to transfuse 2 units PRBC's in am. 5. Once she has stabilized after endoscopy she will be discharged to followup with Dr Becerra who treated her for her breast cancer. Attending Statement The exam, history, and the medical decision-making described in the above note were completed with the assistance of the mid-level provider. I reviewed and agree with the findings presented. I attest that I had a [id number] encounter with the patient on the same day, and personally performed and documented my assessment and findings in the medical record. doing well post op. interesting to find that a portion of the mass was hemorrhage. Once stable should be able to go home and follow up with Dr. Becerra. Will check with path and hopefully we will have a preliminary dx soon. she will receive 2 units today and check cbc in am . APPRECIATE DR. JACINTO'S HELP. Problem Qualifiers (1) Abdominal mass: Qualified Code: R19.05 - Periumbilical mass Shaina Briceno November 13, 2016 13:30 Konrad Huff MD November 13, 2016 21:35
--- NOTE | 2016-11-13 13:53 | HHI.GIFU ---
Subjective Remarks Pt resting in bed, visiting with family. No n/v today. Mild abd tenderness. SHe is awaiting a laparoscopy and bx and is eager to go home. Objective Vitals I&O Vital Signs Date Time Temp Pulse Resp B/P Pulse Ox O2 Delivery O2 Flow Rate FiO2 11/13/16 11:28 98.4 85 16 129/62 100 11/13/16 07:58 99.0 93 20 117/54 100 11/13/16 04:31 99.0 85 20 117/56 97 11/13/16 00:03 98.3 87 20 112/56 99 11/12/16 19:13 97.8 88 20 118/55 100 11/12/16 15:11 97.9 78 21 127/75 100 I/O 11/12/16 11/12/16 11/12/16 11/13/16 11/13/16 11/13/16 07:00 15:00 23:00 07:00 15:00 23:00 Intake Total 560 ml Balance 560 ml Intake Oral 560 ml # Voids 2 # Bowel Movements 0 Laboratory Laboratory Tests Test 11/12/16 11/12/16 11/13/16 11/13/16 14:53 19:24 05:07 10:43 Fibrinogen 306 Hemoglobin 7.5 7.2 7.8 Hematocrit 21.9 21.7 23.9 White Blood Count 5.6 Red Blood Count 2.30 Mean Corpuscular Volume 94.5 Mean Corpuscular Hemoglobin 31.5 Mean Corpuscular Hemoglobin 33.3 Concent Red Cell Distribution Width 12.9 Platelet Count 121 Mean Platelet Volume 8.7 Neutrophils (%) (Auto) 62.1 Lymphocytes (%) (Auto) 28.1 Monocytes (%) (Auto) 8.6 Eosinophils (%) (Auto) 0.7 Basophils (%) (Auto) 0.5 Neutrophils # (Auto) 3.5 Lymphocytes # (Auto) 1.6 Monocytes # (Auto) 0.5 Eosinophils # (Auto) 0.0 Basophils # (Auto) 0.0 CBC Comment DIFF FINAL Differential Comment Sodium Level 144 Potassium Level 3.3 Chloride Level 110 Carbon Dioxide Level 27.1 Anion Gap 7 Blood Urea Nitrogen 6 Creatinine 0.45 Estimat Glomerular Filtration 138 Rate Random Glucose 90 Calcium Level 7.7 Imaging Last Impressions Abdomen Biopsy CT 11/12/16 0600 Signed Impressions: Service Date/Time: Saturday, November 12, 2016 07:58 - CONCLUSION: Uncomplicated CT guided biopsy. Preliminary touch prep is only hemorrhage. Flow cytometry, et cetera is pending. Jose Ramon Yanez MD FACR Cholangiopancreatography MRI 11/11/16 0000 Signed Impressions: Service Date/Time: Friday, November 11, 2016 16:54 - CONCLUSION: Ascites without gallstone, common duct stone or intrahepatic noted dilatation. Generalized edema in the pancreas most prominent in the head Large abdominal mass that appears to arise within the root of the mesentery most suspicious for lymphoma. Given its size and appearance the internal necrosis laparoscopic biopsy may be these its way to obtain the diagnosis. Jose Ramon Yanez MD FACR Chest X-Ray 11/10/16 1620 Signed Impressions: Service Date/Time: Thursday, November 10, 2016 16:24 - CONCLUSION: No acute cardiopulmonary disease. Mild degenerative changes and scoliosis of the thoracic spine Oswaldo Ricks MD Abdomen/Pelvis CT 11/10/16 0000 Signed Impressions: Service Date/Time: Thursday, November 10, 2016 18:22 - CONCLUSION: 1. Diffuse enlargement involving the pancreatic head with edema predominantly involving the inferior aspect of the pancreatic head as well as large mixed density collection extending inferiorly from the region of the pancreatic head into the lower abdomen measuring 12.2 x 10.3 x 8.1 cm. The findings are suggestive of acute hemorrhagic pancreatitis. Correlation with amylase level is suggested for confirmation. 2. Ascites throughout the abdomen and pelvis. 3. Dr. Price was called with the findings of the examination at 1850 hours on 11/10/2016. Oswaldo Ricks MD Physical Exam HEENT: EOMI; normocephalic; atraumatic; CHEST: Chest is clear to auscultation and percussion. CARDIAC: Regular rate and rhythm with no murmur gallop or rubs. ABDOMEN: Soft, nondistended, mild TTP lower abd; no hepatosplenomegaly; bowel sounds are present in all four quadrants. EXTREMITIES: No clubbing, cyanosis, or edema. SKIN: Normal; no rash; no jaundice. [employer]END[employer] SERVER: No focal deficits; alert and oriented times three. Assessment and Plan Plan ASSESSMENT: -Abdominal mass, hemorrhagic pancreatitis versus pancreatic mass. 11-11-16 MRCP - --> CONCLUSION: Ascites without gallstone, common duct stone or intrahepatic noted dilatation. Generalized edema in the pancreas most prominent in the head Large abdominal mass that appears to arise within the root of the mesentery most suspicious for lymphoma. Given its size and appearance the internal necrosis laparoscopic biopsy may be these its way to obtain the diagnosis. Abdomen/Pelvis CT 11/10/16--1. Diffuse enlargement involving the pancreatic head with edema predominantly involving the inferior aspect of the pancreatic head as well as large mixed density collection extending inferiorly from the region of the pancreatic head into the lower abdomen measuring 12.2 x 10.3 x 8.1 cm. The findings are suggestive of acute hemorrhagic pancreatitis. Correlation with amylase level is suggested for confirmation. 2. Ascites throughout the abdomen and pelvis. 3. Dr. Price was called with the findings of the examination at 1850 hours on 11/10/2016. Amylase and lipase normal. GS on the case, pt to have laparoscopy and biopsy. -Epigastric pain, Improving. On admission patient with severe epigastric abdominal pain. CT as above. Has mild epigastric tenderness on palpation today. -Nausea/vomiting, patient continues to have nausea, but no emesis today. Taking Zofran as needed. -Anemia, HH stable from yesterday, 7.8, 23.9. Pt to have 2 x PRBC after surgery per oncolology PLAN: - await laparoscopy and bx -Monitor H+H -PPI -IV Fluids -Supportive care - GI will sign off, please reconsult as needed This pt seen by myself and Dr Molina and this note was written on his behalf. Willa Lam [facility] November 13, 2016 13:53
[2016-11-13] MEDS ORDERED: FAMOTIDINE 20 MG/2 ML VIAL ONE (15:15)
[2016-11-13] MEDS ORDERED: ceFAZolin INJ 1,000 MG VIAL ONE (16:30)
[2016-11-13] MEDS ORDERED: BUPIVACAINE/EPINEPHRINE 0.25% 50 ML VIAL INFIL ONE (17:05)
--- NOTE | 2016-11-13 18:08 | HHI.PR ---
Immediate Post Op Note Procedure Date: November 13, 2016 Pre Op Diagnosis: (1) Abdominal mass Post Op Diagnosis: (1) Abdominal mass Surgeon: Chiki Faulkner Weatherization Coordinator(s): staff Procedure: diagnostic laparoscopy, laparoscopic drainage of intra-abdominal hematoma, laparoscopic biopsy of retroperitoneal mass Findings: large hematoma, mass was mostly old blood/hematoma Complications: none Specimen(s) removed: retroperitoneal mass biopsy Estimated blood loss: 200ml Anesthesia: General, Local Drains: None Patient to: PACU Patient Condition: Good Chiki Faulkner MD November 13, 2016 18:08
[2016-11-13] MEDS ORDERED: MIDAZOLAM HCL 2 MG/2 ML VIAL ONE (18:19)
[2016-11-13] MEDS ORDERED: fentaNYL CITRATE 250 MCG/5 ML AMP ONE (18:19)
--- NOTE | 2016-11-13 21:20 | MP ---
cc: ALBINA JACINTO DATE OF SURGERY: 11/13/2016 PREOPERATIVE DIAGNOSIS: Abdominal mass, likely lymphoma. POSTOPERATIVE DIAGNOSIS: Abdominal mass, likely lymphoma. OPERATION: 1. Staging laparoscopy. 2. Laparoscopic drainage of retroperitoneal hematoma. 3. Laparoscopic biopsy of retroperitoneal mass. ANESTHESIA: General. ATTENDING SURGEON: Dr. Jacinto. AIRLINE TICKET AGENT: Staff. BLOOD LOSS: 200 cc blood loss from the procedure. There was approximately 500 cc of old blood in the hematoma that was drained as well. COMPLICATIONS: None. FINDINGS: Friable oozing mass associated with the root of the mesentery with no hemorrhage or surgical bleeding. Approximately 90% of the volume of this mass was essentially blood clot and old hematoma. No evidence of diffuse metastatic disease in the abdominal cavity. No evidence of obstruction. INDICATIONS FOR PROCEDURE: The patient is a 71-year-old female who had sudden onset of epigastric abdominal pain, is admitted to [facility]. The patient on evaluation was found to have a large hemorrhagic mass that further workup was suspicious for lymphoma. The patient underwent a CT guided biopsy which was unsuccessful in obtaining diagnostic tissue. Discussed with the patient about the risks, benefits and alternatives of laparoscopic biopsy of pancreatic mass or likely lymphoma. She agreed to undergo the procedure. PROCEDURE: After informed consent was obtained, the patient was taken to the operating room, placed in supine position, placed under general endotracheal anesthesia. The patient's abdomen was prepped and draped in usual sterile fashion. A time out was performed. The abdomen was entered through Murray direct entry technique just below the umbilicus. A 10-mm trocar was placed into the abdomen under direct visualization and the abdomen was insufflated. A 5 millimeter, 30 degree camera was used to survey the abdomen. Of note, there was a large retroperitoneal hematoma with some small amount of intraperitoneal blood and contusion-like blood absorption from the hematoma throughout the transverse colon and small bowel mesentery. At this point in time, I did place two 5 millimeter ports, one in the suprapubic position, one in the right upper quadrant to triangulate to be able to better evaluate this mass for possible biopsy. We were able to use a suction rotary drill operator helper to unroof the retroperitoneum and evacuate approximately 500 cc of old blood clot and old hematoma. There was some minimal oozing at the peritoneal edge and from the actual tumor which was mostly debrided just with the suction and was mostly hematoma. There were areas of what appeared to be friable tissue consistent with lymphoma and both of these were resected using the harmonic scalpel without difficulty. They were passed off for permanent processing for fresh lymph node processing. We then turned our attention towards closure. We did place some Surgicel and Nkechi hemostatic agent over the surface of this tumor to again aid in hemostasis. Again, there was no surgical bleeding. This was all essentially minimal tumor oozing. We did place the transverse colon and the omentum back over this location as well to close this space. We removed ports under visualization laparoscope and expressed pneumoperitoneum. We closed all port sites at the fascial level with 0 Vicryl sutures. We closed the skin with 4-0 Monocryl and dermabond. The patient was discontinued from anesthesia taken to the PACU in stable condition. The patient tolerated the procedure well. No apparent complications. All counts were correct. I was present and scrubbed throughout the entire procedure. MD IRMA Singh/MISHA /8:23 PM /9:09 PM
[2016-11-14 01:05] VITALS: BP 139/63; PULSE 86; RESP 20; TEMP 98.5; O2SAT 95
[2016-11-14 04:00] VITALS: BP 140/65; PULSE 95; RESP 18; TEMP 99.5; O2SAT 97
[2016-11-14] MEDS: MORPHINE SULFATE 4 MG/ML INJ IV PRN ×2 (04:18→13:39)
[2016-11-14 05:51] LABS: AUTOMATED NEUTROPHIL # 7.6 TH/MM3 (1.8-7.7); BASOPHIL % 0.3 % (0.0-2.0); EOSINOPHIL % 0.1 % (0.0-4.0); HEMATOCRIT 32.1 % (35.0-46.0); HEMO FLAGS DIFF FINAL; LYMPH % 8.2 % (9.0-44.0); LYMPHOCYTE # 0.7 TH/MM3 (1.0-4.8); MEAN CELL VOLUME 90.7 FL (80.0-100.0); MEAN CORPUSCULAR HEMOGLOBIN 31.5 PG (27.0-34.0); MEAN CORPUSCULAR HGB CONC 34.8 % (32.0-36.0); MONO % 5.9 % (0.0-8.0); NEUT % 85.5 % (16.0-70.0); PLATELET COUNT 147 TH/MM3 (150-450); RED BLOOD COUNT 3.54 MIL/MM3 (4.00-5.30); RED CELL DISTRIBUTION WIDTH 14.6 % (11.6-17.2); WHITE BLOOD COUNT 8.9 TH/MM3 (4.0-11.0)
[2016-11-14 06:07] LABS: BICARBONATE 24.4 MEQ/L (21.0-32.0); MAGNESIUM 1.9 MG/DL (1.5-2.5); POTASSIUM 3.3 MEQ/L (3.5-5.1)
[2016-11-14] MEDS: NS + KCL 20 MEQ INJ 1,000 ML IV SCH ×2 (06:28→19:44)
[2016-11-14 08:00] VITALS: BP 123/57; PULSE 98; RESP 16; TEMP 99.4; O2SAT 98
[2016-11-14] MEDS: PANTOPRAZOLE SODIUM 40 MG VIAL IV PUSH SCH ×2 (09:15→21:45)
[2016-11-14] MEDS: SODIUM CHLORIDE 0.9% FLUSH 10 ML FLUSH IV FLUSH SCH ×2 (09:15→19:43)
--- NOTE | 2016-11-14 10:34 | PD.ONC.PN ---
Subjective Subjective Remarks Pt resting in bed eating breakfast. She tells me she had some minimal abdominal pain earlier but this has since resolved. Objective Data Date Time Temp Pulse Resp B/P Pulse Ox O2 Delivery O2 Flow Rate FiO2 11/14/16 08:00 99.4 98 16 123/57 98 11/14/16 04:00 99.5 95 18 140/65 97 11/14/16 01:05 98.5 86 20 139/63 95 11/13/16 22:31 98.5 76 18 150/68 97 11/13/16 22:10 98.5 75 18 131/63 98 11/13/16 20:30 97.0 67 19 137/76 97 11/13/16 20:10 98.6 82 16 124/65 99 Room Air 11/13/16 20:00 82 15 126/60 98 Room Air 11/13/16 19:45 83 15 129/61 98 Room Air 11/13/16 19:30 82 15 129/60 98 Room Air 11/13/16 19:15 83 15 159/71 97 Room Air 11/13/16 19:00 98.6 80 15 153/69 96 Room Air 11/13/16 18:55 98.6 86 17 100 11/13/16 18:45 72 14 143/63 100 Nasal Cannula 2 11/13/16 18:40 98.3 85 18 131/62 100 11/13/16 18:15 78 14 128/62 98 Nasal Cannula 2 11/13/16 18:05 98.5 88 12 131/64 100 Nasal Cannula 3 11/13/16 11:28 98.4 85 16 129/62 100 Result Diagram: 11/14/1652111/14/16521 Laboratory Results Laboratory Tests Test 11/13/16 11/13/16 11/14/16 10:43 17:32 05:22 Hemoglobin 7.8 GM/DL 11.2 GM/DL Hematocrit 23.9 % 32.1 % Blood Type O POSITIVE Crossmatch Leukocyte-Reduced Red Blood Cells Blood Bank Comment White Blood Count 8.9 TH/MM3 Red Blood Count 3.54 MIL/MM3 Mean Corpuscular Volume 90.7 FL Mean Corpuscular Hemoglobin 31.5 PG Mean Corpuscular Hemoglobin 34.8 % Concent Red Cell Distribution Width 14.6 % Platelet Count 147 TH/MM3 Mean Platelet Volume 8.6 FL Neutrophils (%) (Auto) 85.5 % Lymphocytes (%) (Auto) 8.2 % Monocytes (%) (Auto) 5.9 % Eosinophils (%) (Auto) 0.1 % Basophils (%) (Auto) 0.3 % Neutrophils # (Auto) 7.6 TH/MM3 Lymphocytes # (Auto) 0.7 TH/MM3 Monocytes # (Auto) 0.5 TH/MM3 Eosinophils # (Auto) 0.0 TH/MM3 Basophils # (Auto) 0.0 TH/MM3 CBC Comment DIFF FINAL Differential Comment Sodium Level 141 MEQ/L Potassium Level 3.3 MEQ/L Chloride Level 106 MEQ/L Carbon Dioxide Level 24.4 MEQ/L Anion Gap 11 MEQ/L Blood Urea Nitrogen 5 MG/DL Creatinine 0.35 MG/DL Estimat Glomerular Filtration 185 ML/MIN Rate Random Glucose 72 MG/DL Calcium Level 8.3 MG/DL Magnesium Level 1.9 MG/DL Administered Medications Medications (Trade) Dose Ordered Sig/Ankur Route PRN Reason Start Time Stop Time Status Last Admin Dose Admin Sodium Chloride (NS Flush) 2 ml UNSCH PRN IV FLUSH FLUSH AFTER USING IV ACCESS 11/10/16 20:45 11/11/16 21:32 Sodium Chloride (NS Flush) 2 ml BID IV FLUSH 11/10/16 21:00 11/14/16 09:15 Ondansetron HCl (Zofran Inj) 4 mg Q6H PRN IVP NAUSEA OR VOMITING 11/10/16 20:45 11/10/16 22:36 Morphine Sulfate (Morphine Inj) 2 mg Q3H PRN IV Pain 6-10 11/10/16 20:45 11/14/16 04:18 Oxycodone HCl (Roxicodone) 5 mg Q4H PRN PO PAIN SCALE 3 TO 5 11/10/16 20:45 11/14/16 06:28 Pantoprazole Sodium 40 mg 40 mg Q12H IV PUSH 11/11/16 22:00 11/14/16 09:15 Potassium Chloride/Sodium Chloride (NS + KCl 20 Meq Inj) 1,000 ml @ 84 mls/hr [id number] IV 11/13/16 08:00 11/14/16 06:28 Objective Remarks GENERAL: Older female, sitting up in bed in no distress. SKIN: Warm and dry. No oozing from surgical incisions. HEAD: Normocephalic. EYES: No injection or drainage. NECK: Supple, trachea midline. CARDIOVASCULAR: +S1/S2. RESPIRATORY: Clear posteriorly. GASTROINTESTINAL: Abdomen protuberant, somewhat firm. Subcutaneous emphysema felt over lower abdomen. No bleeding. EXTREMITIES: No cyanosis, or edema. NEUROLOGICAL: No obvious focal deficit. Awake, alert, and oriented x3. Assessment/Plan Problem List: (1) Abdominal mass Status: Acute Plan: -- Pathology pending -- Likely a lymphoma or possibly sarcoma Assessment 71 y/o female admitted with nausea and abdominal pain and was found to have a mass. Plan 1. Pt tolerated her procedure well yesterday. 2. She received 2 units last night post surgery, as the mass was noted to be 90 % clot. 3. Once she has stabilized she will be discharged to followup with Dr Becerra who treated her for her breast cancer. Attending Statement The exam, history, and the medical decision-making described in the above note were completed with the assistance of the mid-level provider. I reviewed and agree with the findings presented. I attest that I had a [id number] encounter with the patient on the same day, and personally performed and documented my assessment and findings in the medical record. doing well post op and from op note it appears that there will be adequate tissue to establish a diagnosis. no obvious additional bleeding and can go home when surgery feels ready for discharge. Problem Qualifiers (1) Abdominal mass: Qualified Code: R19.05 - Periumbilical mass Shaina Briceno November 14, 2016 10:34 Konrad Huff MD November 14, 2016 20:06
[2016-11-14] MEDS ORDERED: POTASSIUM CHLORIDE 10 MEQ CONTROLLED RELEASE TAB PO ONE (11:00)
[2016-11-14 12:00] VITALS: BP 130/61; PULSE 90; RESP 17; TEMP 99.2; O2SAT 97
[2016-11-14] MEDS: SODIUM CHLORIDE 0.9% FLUSH 10 ML FLUSH IV FLUSH PRN (13:42)
--- NOTE | 2016-11-14 14:57 | HHI.PR ---
Subjective Subjective Notes Resting in bed Has been out of bed this AM Little appetite but ordered a small breakfast Objective Vitals/I&O Vital Signs Date Time Temp Pulse Resp B/P Pulse Ox O2 Delivery O2 Flow Rate FiO2 11/14/16 12:00 99.2 90 17 130/61 97 11/13/16 20:10 Room Air 11/13/16 18:45 2 Labs Laboratory Tests Test 11/13/16 11/14/16 11/14/16 17:32 05:22 12:44 Blood Type O POSITIVE Crossmatch Leukocyte-Reduced Red Blood Cells Blood Bank Comment White Blood Count 8.9 Red Blood Count 3.54 Hemoglobin 11.2 Hematocrit 32.1 Mean Corpuscular Volume 90.7 Mean Corpuscular Hemoglobin 31.5 Mean Corpuscular Hemoglobin 34.8 Concent Red Cell Distribution Width 14.6 Platelet Count 147 Mean Platelet Volume 8.6 Neutrophils (%) (Auto) 85.5 Lymphocytes (%) (Auto) 8.2 Monocytes (%) (Auto) 5.9 Eosinophils (%) (Auto) 0.1 Basophils (%) (Auto) 0.3 Neutrophils # (Auto) 7.6 Lymphocytes # (Auto) 0.7 Monocytes # (Auto) 0.5 Eosinophils # (Auto) 0.0 Basophils # (Auto) 0.0 CBC Comment DIFF FINAL Differential Comment Sodium Level 141 Potassium Level 3.3 Chloride Level 106 Carbon Dioxide Level 24.4 Anion Gap 11 Blood Urea Nitrogen 5 Creatinine 0.35 Estimat Glomerular Filtration 185 Rate Random Glucose 72 Calcium Level 8.3 Magnesium Level 1.9 2.0 Cardiovascular: Regular Lungs: Clear Abdomen: Other (lap sites c/d/i; abdomen mildly distended ), Post-op tenderness Extremities: No edema A/P Assessment and Plan 71 year old female with abdominal mass; POD1 dx lap and biopsy of mass -Regular diet---encouraged small more frequent meals -OOB and mobilize -Pain control -Await pathology results Attending Statement The exam, history, and the medical decision-making described in the above note were completed with the assistance of the mid-level provider. I reviewed and agree with the findings presented. I attest that I had a [id number] encounter with the patient on the same day, and personally performed and documented my assessment and findings in the medical record. Abdominal exam postop tenderness, pain controlled, continue to follow HH Nelly Aranda November 14, 2016 14:57 Chiki Faulkner MD November 27, 2016 16:57
[2016-11-14 16:00] VITALS: BP 107/53; PULSE 95; RESP 16; TEMP 99.6; O2SAT 97
[2016-11-14 20:00] VITALS: BP 119/62; PULSE 102; RESP 22; TEMP 100.2; O2SAT 99
--- NOTE | 2016-11-14 22:38 | HHI.PR ---
Subjective Remarks patient seen this morning around 10 AM. Says she is feeling all right. Tolerating food. No postoperative bowel movement yet. Denies any chest pain or shortness of breath. Objective Vital Signs Date Time Temp Pulse Resp B/P Pulse Ox O2 Delivery O2 Flow Rate FiO2 11/14/16 20:00 100.2 102 22 119/62 99 11/14/16 16:00 99.6 95 16 107/53 97 11/14/16 13:40 16 11/14/16 12:00 99.2 90 17 130/61 97 11/14/16 08:00 99.4 98 16 123/57 98 11/14/16 04:00 99.5 95 18 140/65 97 11/14/16 01:05 98.5 86 20 139/63 95 I/O 11/13/16 11/13/16 11/13/16 11/14/16 11/14/16 11/14/16 07:00 15:00 23:00 07:00 15:00 23:00 Intake Total 2346 ml 961 ml 600 ml Output Total 950 ml 1200 ml 375 ml Balance 1396 ml -239 ml 225 ml Intake Oral 240 ml 120 ml 600 ml IV Total 956 ml 591 ml Packed Cells 250 ml 250 ml Other 900 ml Output Urine Total 800 ml 1200 ml 375 ml Estimated Blood Loss 150 ml # Voids 3 # Bowel Movements 0 0 0 Result Diagram: 11/14/1652111/14/16521 Objective Remarks GENERAL: patient sitting up in bed. Appears comfortable. Alert and oriented 3. SKIN: Warm and dry. HEAD: Normocephalic. EYES: No scleral icterus. No injection or drainage. NECK: Supple, trachea midline. No JVD CARDIOVASCULAR: Regular rate and rhythm without murmurs, gallops, or rubs. RESPIRATORY: Breath sounds equal bilaterally. No accessory muscle use. GASTROINTESTINAL: Abdomen soft, non-tender, nondistended. surgical incisions withSteri-Strips intact. no surrounding erythema. MUSCULOSKELETAL: No cyanosis, or edema. BACK: Nontender without obvious deformity. No CVA tenderness. A/P Assessment and Plan ==== 11/14/16 Potassium low. 3.3. Replaced Doing well. Hemoglobin appropriate increase. We'll monitor tomorrow Mrs. Tyler is a 71-year-old female with a known medical history of right breast cancer, status post lumpectomy and radiation seven years ago, who presented to the ED with complaints of mid-epigastric abdominal pain that started yesterday morning around 10am while patient was at work. Patient reports pain was burning and pressure-like in nature, intermittent throughout the day about a 5-6/10 on pain scale. At around 2pm patient noticed the pain to be more constant in nature with associated nausea, becoming a 10/10 on pain scale and seemed to worsen with mobilization and immediately brought into ED for assessment. //POD1 dx laparoscopic biopsy of mass //Abdominal mass: Suspect lymphoma. Associated abdominal pain, nausea and vomiting. Reviewed: Abdomen/Pelvis CT reveals diffuse enlargement involving the pancreatic head with edema predominantly involving the inferior aspect of the pancreatic head as well as large mixed density collection extending inferiorly from the region of the pancreatic head into the lower abdomen measuring 12.2 x 10.3 x 8.1 cm. The findings are suggestive of acute hemorrhagic pancreatitis; ascites throughout the abdomen and pelvis. MRCP showed ascites, generalized edema in the pancreas most prominent in the head, large abdominal mass that appears to arise within the root of the mesentery and suspicious for lymphoma, internal necrosis of the mass. Amylase and lipase within normal limits. - Consult general surgery, GI, and medical oncology, appreciate specialist input. - S/P CT-guided biopsy of the mass - Trend H&H. - Started PPI. Protonix 40 mg IV BID. - Control pain: Roxicodone PO scheduled per pain scale. Morphine IV PRN per pain scale. - Continue IVF -11/14. Patient doing well. Mass found to be mostly clot. Postoperative management as per surgical service. //Hypokalemia. Monitor and replace as necessary. //Normocytic, normochromic anemia: Suspect secondary to hemorrhagic mass. Reviewed: Hemoglobin 11.7, no previous labs for comparison. Hemoglobin trended down to 7.2. Vital signs stable. Mass biopsy with preliminary touch prep of only hemorrhage. Fibrinogen within normal limits. - Monitor serial H&H - Check stool Hemoccult - Transfuse if indicated //Mild leukocytosis: WBC 11.6 at admission. Resolved. Afebrile. Monitor. //Alcohol use: 2-3 drinks daily - CIWA protocol. - Monitor withdrawal symptoms. Seizure precautions. //Nausea and vomiting: Zofran PRN. DVT prophylaxis: SCDs/Ramone Martinez MD November 14, 2016 22:38
[2016-11-15] VITALS: BP 136/64; PULSE 98; RESP 20; TEMP 100; O2SAT 98
[2016-11-15] MEDS: MORPHINE SULFATE 4 MG/ML INJ IV PRN (02:10)
[2016-11-15 06:56] LABS: BASOPHIL % 0.4 % (0.0-2.0); EOSINOPHIL % 0.2 % (0.0-4.0); HEMATOCRIT 24.9 % (35.0-46.0); HEMO FLAGS DIFF FINAL; LYMPHOCYTE # 0.8 TH/MM3 (1.0-4.8); MEAN CELL VOLUME 91.3 FL (80.0-100.0); MEAN CORPUSCULAR HEMOGLOBIN 31.5 PG (27.0-34.0); MEAN CORPUSCULAR HGB CONC 34.5 % (32.0-36.0); MONO % 9.9 % (0.0-8.0); NEUT % 80.5 % (16.0-70.0); PLATELET COUNT 145 TH/MM3 (150-450); RED BLOOD COUNT 2.73 MIL/MM3 (4.00-5.30); RED CELL DISTRIBUTION WIDTH 14.3 % (11.6-17.2); WHITE BLOOD COUNT 8.7 TH/MM3 (4.0-11.0)
[2016-11-15 07:15] LABS: BICARBONATE 26.9 MEQ/L (21.0-32.0); MAGNESIUM 1.9 MG/DL (1.5-2.5); POTASSIUM 4.2 MEQ/L (3.5-5.1)
[2016-11-15] MEDS: NS + KCL 20 MEQ INJ 1,000 ML IV SCH ×3 (07:40→21:01)
[2016-11-15 07:51] VITALS: BP 121/59; PULSE 100; RESP 17; TEMP 99.3; O2SAT 98
[2016-11-15] MEDS: PANTOPRAZOLE SODIUM 40 MG VIAL IV PUSH SCH ×2 (08:57→21:01)
[2016-11-15] MEDS: SODIUM CHLORIDE 0.9% FLUSH 10 ML FLUSH IV FLUSH SCH ×2 (08:57→21:01)
[2016-11-15 12:00] VITALS: BP 136/60; PULSE 100; RESP 19; TEMP 98.2; O2SAT 98
[2016-11-15] MEDS ORDERED: MAGNESIUM HYDROXIDE SUSP 30 ML CUP PO ONE (15:30)
[2016-11-15] MEDS ORDERED: POTASSIUM PHOSPHATE/SODIUM PHOSPHATE 250 MG TAB PO ONE (15:30)
[2016-11-15] MEDS ORDERED: DOCUSATE SODIUM 50 MG/SENNA 8.6 MG TAB PO ONE (15:30)
[2016-11-15 16:00] VITALS: BP 143/63; PULSE 115; RESP 18; TEMP 97.4; O2SAT 99
--- NOTE | 2016-11-15 16:17 | HHI.PR ---
Subjective Subjective Notes Resting in bed Reports she has passed a small amount of gas Still feels distended Pain better today Objective Vitals/I&O Vital Signs Date Time Temp Pulse Resp B/P Pulse Ox O2 Delivery O2 Flow Rate FiO2 11/15/16 12:00 98.2 100 19 136/60 98 11/13/16 20:10 Room Air 11/13/16 18:45 2 Labs Laboratory Tests Test 11/15/16 11/15/16 06:04 11:49 White Blood Count 8.7 Red Blood Count 2.73 Hemoglobin 8.6 8.5 Hematocrit 24.9 Mean Corpuscular Volume 91.3 Mean Corpuscular Hemoglobin 31.5 Mean Corpuscular Hemoglobin 34.5 Concent Red Cell Distribution Width 14.3 Platelet Count 145 Mean Platelet Volume 9.0 Neutrophils (%) (Auto) 80.5 Lymphocytes (%) (Auto) 9.0 Monocytes (%) (Auto) 9.9 Eosinophils (%) (Auto) 0.2 Basophils (%) (Auto) 0.4 Neutrophils # (Auto) 7.0 Lymphocytes # (Auto) 0.8 Monocytes # (Auto) 0.9 Eosinophils # (Auto) 0.0 Basophils # (Auto) 0.0 CBC Comment DIFF FINAL Differential Comment Sodium Level 139 Potassium Level 4.2 Chloride Level 106 Carbon Dioxide Level 26.9 Anion Gap 6 Blood Urea Nitrogen 5 Creatinine 0.43 Estimat Glomerular Filtration 146 Rate Random Glucose 104 Calcium Level 8.1 Phosphorus Level 2.0 Magnesium Level 1.9 Albumin 2.7 Cardiovascular: Regular Lungs: Clear Abdomen: Other (distended; lap sites c/d/i; ), Post-op tenderness Extremities: No edema A/P Assessment and Plan 71 year old female with abdominal mass; POD2 dx lap and biopsy of mass -Regular diet---encouraged small more frequent meals -Continue to monitor Hmg---today 8.7 -OOB and mobilize -Pain control -Await pathology results Attending Statement The exam, history, and the medical decision-making described in the above note were completed with the assistance of the mid-level provider. I reviewed and agree with the findings presented. I attest that I had a [id number] encounter with the patient on the same day, and personally performed and documented my assessment and findings in the medical record. Abdominal exam stable, tenderness on exam, no rebound tenderness or peritonitis HH ok, can DC home once tolerating diet and HH stable Nelly Aranda November 15, 2016 16:17 Chiki Faulkner MD November 27, 2016 17:01
[2016-11-15 20:00] VITALS: BP 142/64; PULSE 117; RESP 22; TEMP 99.9; O2SAT 97
--- NOTE | 2016-11-15 23:14 | HHI.PR ---
Subjective Remarks Patient seen this morning around 10 AM. Since she is feeling all right. Pain is controlled. Has been walking around unit. Denies any chest pain or shortness of breath. Objective Vital Signs Date Time Temp Pulse Resp B/P Pulse Ox O2 Delivery O2 Flow Rate FiO2 11/15/16 20:00 99.9 117 22 142/64 97 11/15/16 16:00 97.4 115 18 143/63 99 11/15/16 12:00 98.2 100 19 136/60 98 11/15/16 07:51 99.3 100 17 121/59 98 11/15/16 02:15 18 11/15/16 00:00 100.0 98 20 136/64 98 I/O 11/14/16 11/14/16 11/14/16 11/15/16 11/15/16 11/15/16 07:00 15:00 23:00 07:00 15:00 23:00 Intake Total 961 ml 600 ml 627 ml 830 ml 1477 ml 320 ml Output Total 1200 ml 375 ml 200 ml 900 ml 2200 ml 1150 ml Balance -239 ml 225 ml 427 ml -70 ml -723 ml -830 ml Intake Oral 120 ml 600 ml 120 ml 120 ml 880 ml 320 ml IV Total 591 ml 507 ml 710 ml 597 ml Packed Cells 250 ml Output Urine Total 1200 ml 375 ml 200 ml 900 ml 2200 ml 1150 ml # Bowel Movements 0 0 0 0 1 0 Result Diagram: 11/15/16 1723 11/15/16 0604 Objective Remarks GENERAL: patient sitting up in bed. Appears comfortable. Alert and oriented 3. SKIN: Warm and dry. HEAD: Normocephalic. EYES: No scleral icterus. No injection or drainage. NECK: Supple, trachea midline. No JVD CARDIOVASCULAR: Regular rate and rhythm without murmurs, gallops, or rubs. RESPIRATORY: Breath sounds equal bilaterally. No accessory muscle use. GASTROINTESTINAL: Abdomen soft, non-tender, nondistended. surgical incisions withSteri-Strips intact. no surrounding erythema.minimal surrounding ecchymosis. No hematoma palpated. MUSCULOSKELETAL: No cyanosis, or edema. BACK: Nontender without obvious deformity. No CVA tenderness. A/P Assessment and Plan ==== 11/14/16 Potassium 4.2 improved. Monitor. Hemoglobin 8.6 this morning, down from 11.2. We'll continue to monitor. Mrs. Tyler is a 71-year-old female with a known medical history of right breast cancer, status post lumpectomy and radiation seven years ago, who presented to the ED with complaints of mid-epigastric abdominal pain that started yesterday morning around 10am while patient was at work. Patient reports pain was burning and pressure-like in nature, intermittent throughout the day about a 5-6/10 on pain scale. At around 2pm patient noticed the pain to be more constant in nature with associated nausea, becoming a 10/10 on pain scale and seemed to worsen with mobilization and immediately brought into ED for assessment. //POD1 dx laparoscopic biopsy of mass //Abdominal mass: Suspect lymphoma. Associated abdominal pain, nausea and vomiting. Reviewed: Abdomen/Pelvis CT reveals diffuse enlargement involving the pancreatic head with edema predominantly involving the inferior aspect of the pancreatic head as well as large mixed density collection extending inferiorly from the region of the pancreatic head into the lower abdomen measuring 12.2 x 10.3 x 8.1 cm. The findings are suggestive of acute hemorrhagic pancreatitis; ascites throughout the abdomen and pelvis. MRCP showed ascites, generalized edema in the pancreas most prominent in the head, large abdominal mass that appears to arise within the root of the mesentery and suspicious for lymphoma, internal necrosis of the mass. Amylase and lipase within normal limits. - Consult general surgery, GI, and medical oncology, appreciate specialist input. - S/P CT-guided biopsy of the mass - Trend H&H. - Started PPI. Protonix 40 mg IV BID. - Control pain: Roxicodone PO scheduled per pain scale. Morphine IV PRN per pain scale. - Continue IVF -11/14. Patient doing well. Mass found to be mostly clot. Postoperative management as per surgical service. -11/15. Decrease in hemoglobin. Continue to monitor. Appreciate general surgery assistance. //Hypokalemia. Monitor and replace as necessary. //Normocytic, normochromic anemia: Suspect secondary to hemorrhagic mass. Reviewed: Hemoglobin 11.7, no previous labs for comparison. Hemoglobin trended down to 7.2. Vital signs stable. Mass biopsy with preliminary touch prep of only hemorrhage. Fibrinogen within normal limits. - Monitor serial H&H - Check stool Hemoccult - Transfuse if indicated //Mild leukocytosis: WBC 11.6 at admission. Resolved. Afebrile. Monitor. //Alcohol use: 2-3 drinks daily - CIWA protocol. - Monitor withdrawal symptoms. Seizure precautions. //Nausea and vomiting: Zofran PRN. DVT prophylaxis: Patient is ambulatory. SCDs/TEDs Discharge Planning when cleared by general surgery Ramone Fofana MD November 15, 2016 23:14
[2016-11-16] VITALS: BP 129/64; PULSE 108; RESP 22; TEMP 99.7; O2SAT 99
[2016-11-16 03:22] LABS: AUTOMATED NEUTROPHIL # 4.7 TH/MM3 (1.8-7.7); BASOPHIL % 0.2 % (0.0-2.0); EOSINOPHIL # 0.1 TH/MM3 (0-0.4); EOSINOPHIL % 1.2 % (0.0-4.0); HEMATOCRIT 23.8 % (35.0-46.0); HEMO FLAGS DIFF FINAL; LYMPH % 14.9 % (9.0-44.0); MEAN CELL VOLUME 91.7 FL (80.0-100.0); MEAN CORPUSCULAR HEMOGLOBIN 30.6 PG (27.0-34.0); MEAN CORPUSCULAR HGB CONC 33.3 % (32.0-36.0); MONO % 11.2 % (0.0-8.0); NEUT % 72.5 % (16.0-70.0); PLATELET COUNT 150 TH/MM3 (150-450); RED BLOOD COUNT 2.59 MIL/MM3 (4.00-5.30); RED CELL DISTRIBUTION WIDTH 14.2 % (11.6-17.2); WHITE BLOOD COUNT 6.4 TH/MM3 (4.0-11.0)
[2016-11-16 03:31] LABS: BICARBONATE 27.2 MEQ/L (21.0-32.0); MAGNESIUM 1.9 MG/DL (1.5-2.5)
[2016-11-16 08:00] VITALS: BP 138/72; PULSE 98; RESP 17; TEMP 98.3; O2SAT 99
[2016-11-16] MEDS: ONDANSETRON HCL 4 MG/2 ML VIAL IVP PRN (08:15)
[2016-11-16] MEDS: PANTOPRAZOLE SODIUM 40 MG VIAL IV PUSH SCH ×2 (08:15→20:04)
[2016-11-16] MEDS: SODIUM CHLORIDE 0.9% FLUSH 10 ML FLUSH IV FLUSH SCH ×2 (08:19→20:04)
--- NOTE | 2016-11-16 11:26 | HHI.PR ---
Subjective Subjective Notes Up to chair; able to ambulate around room Reports she walked hallways several times yesterday Had small BM Still feels distended Objective Vitals/I&O Vital Signs Date Time Temp Pulse Resp B/P Pulse Ox O2 Delivery O2 Flow Rate FiO2 11/16/16 08:00 98.3 98 17 138/72 99 11/13/16 20:10 Room Air 11/13/16 18:45 2 Labs Laboratory Tests Test 11/15/16 11/15/16 11/16/16 11:49 17:23 02:25 Hemoglobin 8.5 8.1 7.9 White Blood Count 6.4 Red Blood Count 2.59 Hematocrit 23.8 Mean Corpuscular Volume 91.7 Mean Corpuscular Hemoglobin 30.6 Mean Corpuscular Hemoglobin 33.3 Concent Red Cell Distribution Width 14.2 Platelet Count 150 Mean Platelet Volume 8.9 Neutrophils (%) (Auto) 72.5 Lymphocytes (%) (Auto) 14.9 Monocytes (%) (Auto) 11.2 Eosinophils (%) (Auto) 1.2 Basophils (%) (Auto) 0.2 Neutrophils # (Auto) 4.7 Lymphocytes # (Auto) 1.0 Monocytes # (Auto) 0.7 Eosinophils # (Auto) 0.1 Basophils # (Auto) 0.0 CBC Comment DIFF FINAL Differential Comment Sodium Level 141 Potassium Level 4.0 Chloride Level 108 Carbon Dioxide Level 27.2 Anion Gap 6 Blood Urea Nitrogen 5 Creatinine 0.36 Estimat Glomerular Filtration 179 Rate Random Glucose 100 Calcium Level 8.5 Phosphorus Level 2.3 Magnesium Level 1.9 Albumin 2.6 Cardiovascular: Regular Lungs: Clear Abdomen: Other (lap sites c/d/i; RLQ tenderness with palpation; abdominal distention ) Extremities: No edema A/P Assessment and Plan 71 year old female with abdominal mass; POD3 dx lap and biopsy of mass -Regular diet---encouraged small more frequent meals -Continue to monitor Hmg---today 7.9 -OOB and mobilize -Pain control -Await pathology results Attending Statement The exam, history, and the medical decision-making described in the above note were completed with the assistance of the mid-level provider. I reviewed and agree with the findings presented. I attest that I had a [id number] encounter with the patient on the same day, and personally performed and documented my assessment and findings in the medical record. Abdominal exam stable, ok to DC home Nelly Aranda November 16, 2016 11:26 Chiki Faulkner MD November 27, 2016 17:02
[2016-11-16 12:00] VITALS: BP 130/62; PULSE 102; RESP 16; TEMP 97.7; O2SAT 100
[2016-11-16] MEDS: NS + KCL 20 MEQ INJ 1,000 ML IV SCH (12:56)
[2016-11-16 16:00] VITALS: BP 119/63; PULSE 100; RESP 16; TEMP 95.3; O2SAT 99
[2016-11-16 20:00] VITALS: BP 124/56; PULSE 103; RESP 20; TEMP 98.9; O2SAT 100
[2016-11-16 20:19] LABS: INTERNATIONAL NORMALIZED RATIO 0.9 RATIO; PROTHROMBIN TIME - PATIENT 10.4 SEC (9.8-11.6)
--- NOTE | 2016-11-16 21:31 | HHI.PR ---
Subjective Remarks Patient seen this morning around 11 AM. She says that abdomen continues to feel distended. Has been tolerating diet. denies any chest pain or shortness of breath. Walking around. She denies any bleeding. Objective Vital Signs Date Time Temp Pulse Resp B/P Pulse Ox O2 Delivery O2 Flow Rate FiO2 11/16/16 20:00 98.9 103 20 124/56 100 11/16/16 16:00 95.3 100 16 119/63 99 11/16/16 12:00 97.7 102 16 130/62 100 11/16/16 08:00 98.3 98 17 138/72 99 11/16/16 00:00 99.7 108 22 129/64 99 I/O 11/15/16 11/15/16 11/15/16 11/16/16 11/16/16 11/16/16 07:00 15:00 23:00 07:00 15:00 23:00 Intake Total 830 ml 1477 ml 320 ml 1150 ml 240 ml Output Total 900 ml 2200 ml 1150 ml 1600 ml 950 ml Balance -70 ml -723 ml -830 ml -450 ml -710 ml Intake Oral 120 ml 880 ml 320 ml 480 ml 240 ml IV Total 710 ml 597 ml 670 ml Output Urine Total 900 ml 2200 ml 1150 ml 1600 ml 950 ml # Bowel Movements 0 1 0 0 Result Diagram: 11/16/16 1829 11/16/16 0225 Objective Remarks GENERAL: patient sitting up in bed. Appears comfortable. Alert and oriented 3. SKIN: Warm and dry. HEAD: Normocephalic. EYES: No scleral icterus. No injection or drainage. NECK: Supple, trachea midline. No JVD CARDIOVASCULAR: Regular rate and rhythm without murmurs, gallops, or rubs. RESPIRATORY: Breath sounds equal bilaterally. No accessory muscle use. GASTROINTESTINAL: Abdomen soft, non-tender, nondistended. surgical incisions with Steri-Strips intact. as before, no surrounding erythema.minimal surrounding ecchymosis. No hematoma palpated. MUSCULOSKELETAL: No cyanosis, or edema. BACK: Nontender without obvious deformity. No CVA tenderness. A/P Assessment and Plan ==== 11/15/16 Hemoglobin down to 7.9 from 8.6. Continue to monitor. Follow-up results from biopsy Mrs. Tyler is a 71-year-old female with a known medical history of right breast cancer, status post lumpectomy and radiation seven years ago, who presented to the ED with complaints of mid-epigastric abdominal pain that started yesterday morning around 10am while patient was at work. Patient reports pain was burning and pressure-like in nature, intermittent throughout the day about a 5-6/10 on pain scale. At around 2pm patient noticed the pain to be more constant in nature with associated nausea, becoming a 10/10 on pain scale and seemed to worsen with mobilization and immediately brought into ED for assessment. //POD1 dx laparoscopic biopsy of mass //Abdominal mass: Suspect lymphoma. Associated abdominal pain, nausea and vomiting. Reviewed: Abdomen/Pelvis CT reveals diffuse enlargement involving the pancreatic head with edema predominantly involving the inferior aspect of the pancreatic head as well as large mixed density collection extending inferiorly from the region of the pancreatic head into the lower abdomen measuring 12.2 x 10.3 x 8.1 cm. The findings are suggestive of acute hemorrhagic pancreatitis; ascites throughout the abdomen and pelvis. MRCP showed ascites, generalized edema in the pancreas most prominent in the head, large abdominal mass that appears to arise within the root of the mesentery and suspicious for lymphoma, internal necrosis of the mass. Amylase and lipase within normal limits. - Consult general surgery, GI, and medical oncology, appreciate specialist input. - S/P CT-guided biopsy of the mass - Trend H&H. - Started PPI. Protonix 40 mg IV BID. - Control pain: Roxicodone PO scheduled per pain scale. Morphine IV PRN per pain scale. - Continue IVF -11/14. Patient doing well. Mass found to be mostly clot. Postoperative management as per surgical service. -11/15. Decrease in hemoglobin. Continue to monitor. Appreciate general surgery assistance. -11/16. Further decrease in hemoglobin 7.9. Could be in part dilutional. INR is stable. We will discontinue fluids as patient is tolerating diet. //Hypokalemia. Monitor and replace as necessary. //Normocytic, normochromic anemia: Suspect secondary to hemorrhagic mass. Reviewed: Hemoglobin 11.7, no previous labs for comparison. Hemoglobin trended down to 7.2. Vital signs stable. Mass biopsy with preliminary touch prep of only hemorrhage. Fibrinogen within normal limits. - Monitor serial H&H - Check stool Hemoccult - Transfuse if indicated, threshold would be 7.0 unless symptomatic. //Mild leukocytosis: WBC 11.6 at admission. Resolved. Afebrile. Monitor. //Alcohol use: 2-3 drinks daily - CIWA protocol. - Monitor withdrawal symptoms. Seizure precautions. //Nausea and vomiting: Zofran PRN. DVT prophylaxis: Patient is ambulatory. SCDs/TEDs Discharge Planning when cleared by general surgery Ramone Fofana MD November 16, 2016 21:31
[2016-11-17] VITALS: BP 129/60; PULSE 93; RESP 20; TEMP 99.2; O2SAT 99
[2016-11-17 04:00] VITALS: BP 129/60; PULSE 88; RESP 20; TEMP 99.2; O2SAT 98
[2016-11-17 05:38] LABS: AUTOMATED NEUTROPHIL # 4.2 TH/MM3 (1.8-7.7); BASOPHIL % 0.6 % (0.0-2.0); EOSINOPHIL # 0.1 TH/MM3 (0-0.4); EOSINOPHIL % 2.1 % (0.0-4.0); HEMATOCRIT 25.8 % (35.0-46.0); HEMO FLAGS DIFF FINAL; LYMPH % 17.4 % (9.0-44.0); MEAN CELL VOLUME 92.1 FL (80.0-100.0); MEAN CORPUSCULAR HEMOGLOBIN 30.7 PG (27.0-34.0); MEAN CORPUSCULAR HGB CONC 33.4 % (32.0-36.0); MONO % 10.4 % (0.0-8.0); NEUT % 69.5 % (16.0-70.0); PLATELET COUNT 202 TH/MM3 (150-450); RED CELL DISTRIBUTION WIDTH 14.3 % (11.6-17.2)
[2016-11-17 05:56] LABS: BICARBONATE 29.6 MEQ/L (21.0-32.0); MAGNESIUM 2.1 MG/DL (1.5-2.5); POTASSIUM 3.8 MEQ/L (3.5-5.1)
[2016-11-17 08:00] VITALS: BP 120/66; PULSE 98; RESP 17; TEMP 96.3; O2SAT 100
--- NOTE | 2016-11-17 08:02 | HHI.PR ---
Subjective Subjective Notes awake, alert, comfortable. Passing flatus, no BM. feels bloated, wants top go home to get back on her routine, will help her bowels work. Objective Vitals/I&O Vital Signs Date Time Temp Pulse Resp B/P Pulse Ox O2 Delivery O2 Flow Rate FiO2 11/17/16 04:00 99.2 88 20 129/60 98 11/13/16 20:10 Room Air 11/13/16 18:45 2 Labs Laboratory Tests Test 11/16/16 11/16/16 11/16/16 11/17/16 12:02 18:29 19:53 05:13 Hemoglobin 8.6 7.9 8.6 Prothrombin Time 10.4 Prothromb Time International 0.9 Ratio Blood Type O POSITIVE Antibody Screen NEGATIVE Crossmatch Leukocyte-Reduced Red Blood Cells Blood Bank Comment White Blood Count 6.0 Red Blood Count 2.80 Hematocrit 25.8 Mean Corpuscular Volume 92.1 Mean Corpuscular Hemoglobin 30.7 Mean Corpuscular Hemoglobin 33.4 Concent Red Cell Distribution Width 14.3 Platelet Count 202 Mean Platelet Volume 8.6 Neutrophils (%) (Auto) 69.5 Lymphocytes (%) (Auto) 17.4 Monocytes (%) (Auto) 10.4 Eosinophils (%) (Auto) 2.1 Basophils (%) (Auto) 0.6 Neutrophils # (Auto) 4.2 Lymphocytes # (Auto) 1.0 Monocytes # (Auto) 0.6 Eosinophils # (Auto) 0.1 Basophils # (Auto) 0.0 CBC Comment DIFF FINAL Differential Comment Sodium Level 142 Potassium Level 3.8 Chloride Level 106 Carbon Dioxide Level 29.6 Anion Gap 6 Blood Urea Nitrogen 7 Creatinine 0.47 Estimat Glomerular Filtration 131 Rate Random Glucose 87 Calcium Level 9.1 Phosphorus Level 3.3 Magnesium Level 2.1 Albumin 2.9 Abdomen: Other (protuberant abdomen. R flank ecchymosis. Non tender. Incisions healing well.) Extremities: No edema, Perfused, SCD's on A/P Assessment and Plan postop lap biopsy of abdominal mass. Path benign, hematoma with fibrosis. Pt wants to go home, Hgb up to 8.6 today. OK for Dc and follow up with Kaushik in 1 week. Tin Richards MD November 17, 2016 08:02
--- NOTE | 2016-11-17 08:23 | HHI.PR ---
Subjective Remarks Patient seen for follow up abdominal mass. 11/17/16-patient seen this morning. No acute events overnight. Vitals essentially WNL. Jewels c/o mild bloating this morning. Improving with ambulation. Otherwise no complaints. Wants to go home. No ab pain, N/V, or F/C. Objective Vitals Vital Signs Date Time Temp Pulse Resp B/P Pulse Ox O2 Delivery O2 Flow Rate FiO2 11/17/16 04:00 99.2 88 20 129/60 98 11/17/16 00:00 99.2 93 20 129/60 99 11/16/16 20:00 98.9 103 20 124/56 100 11/16/16 16:00 95.3 100 16 119/63 99 11/16/16 12:00 97.7 102 16 130/62 100 I/O 11/16/16 11/16/16 11/16/16 11/17/16 11/17/16 11/17/16 07:00 15:00 23:00 07:00 15:00 23:00 Intake Total 1150 ml 240 ml 848 ml 480 ml Output Total 1600 ml 950 ml 1200 ml 600 ml Balance -450 ml -710 ml -352 ml -120 ml Intake Oral 480 ml 240 ml 240 ml 480 ml IV Total 670 ml 608 ml 0 ml Output Urine Total 1600 ml 950 ml 1200 ml 600 ml # Bowel Movements 0 0 0 Result Diagram: 11/17/1651211/17/16512 Objective Remarks GENERAL: Well-appearing female patient. Walking around room. SKIN: Warm and dry. No rash. CARDIOVASCULAR: Regular rate and rhythm without murmurs, gallops, or rubs. RESPIRATORY: Breath sounds equal bilaterally. No accessory muscle use. CTAB. No adventitious sounds. GASTROINTESTINAL: Abdomen soft, non-tender, nondistended. surgical incisions with Steri-Strips intact. No surrounding erythema, edema, or drainage. No hematoma palpated. MUSCULOSKELETAL: No cyanosis, or edema. BACK: Nontender without obvious deformity. No CVA tenderness. A/P Problem List: (1) Abdominal mass ICD Code: R19.00 Status: Acute (2) Hypokalemia ICD Code: E87.6 Status: Acute (3) Anemia ICD Code: D64.9 Status: Acute (4) Leukocytosis ICD Code: D72.829 Status: Acute (5) Alcohol use ICD Code: Z78.9 Status: Acute Assessment and Plan Mrs. Tyler is a 71-year-old female with a known medical history of right breast cancer, status post lumpectomy and radiation seven years ago, who presented to the ED with complaints of mid-epigastric abdominal pain that started at work. Patient reports pain was burning and pressure-like in nature, intermittent throughout the day about a 5-6/10 on pain scale. At around 2pm patient noticed the pain to be more constant in nature with associated nausea, becoming a 10/10 on pain scale and seemed to worsen with mobilization and immediately brought into ED for assessment. //POD4 dx laparoscopic biopsy of mass //Abdominal mass: Suspect lymphoma. Associated abdominal pain, nausea and vomiting. Reviewed: Abdomen/Pelvis CT reveals diffuse enlargement involving the pancreatic head with edema predominantly involving the inferior aspect of the pancreatic head as well as large mixed density collection extending inferiorly from the region of the pancreatic head into the lower abdomen measuring 12.2 x 10.3 x 8.1 cm. The findings are suggestive of acute hemorrhagic pancreatitis; ascites throughout the abdomen and pelvis. MRCP showed ascites, generalized edema in the pancreas most prominent in the head, large abdominal mass that appears to arise within the root of the mesentery and suspicious for lymphoma, internal necrosis of the mass. Amylase and lipase within normal limits. - General surgery consulted. Path benign. Okay for DC home. - hemoglobin stable, as below - Started PPI. Protonix 40 mg IV BID. Will switch to PO in anticipation of DC. - Control pain: Roxicodone PO scheduled per pain scale. Morphine IV PRN per pain scale. //Hypokalemia. -Resolved. Monitor and replace as necessary. //Normocytic, normochromic anemia: Suspect secondary to hemorrhagic mass. Reviewed: Hemoglobin 11.7, no previous labs for comparison. Hemoglobin trended down to 7.2. Vital signs stable. Mass biopsy with preliminary touch prep of only hemorrhage. Fibrinogen within normal limits. - Hemoglobin stable at 8.6 this AM. - S/p transfusion 2 u pRBC 11/13 - Transfuse if indicated, threshold would be 7.0 unless symptomatic. //Mild leukocytosis -resolved. //Alcohol use: 2-3 drinks daily - CIWA protocol. - Monitor withdrawal symptoms. Seizure precautions. //Nausea and vomiting -Zofran PRN. DVT prophylaxis: Patient is ambulatory -SCDs/TEDs Discharge Planning Plan for DC home today with surgery follow up in 1 week Problem Qualifiers (1) Abdominal mass: Qualified Code: R19.05 - Periumbilical mass (2) Anemia: Qualified Code: D64.9 - Anemia, unspecified type (3) Leukocytosis: Qualified Code: D72.829 - Leukocytosis, unspecified type Virgilio Dumont MD R3 November 17, 2016 08:23 (2) Anemia: Qualified Code: D64.9 - Anemia, unspecified type (3) Leukocytosis: Qualified Code: D72.829 - Leukocytosis, unspecified type Virgilio Dumont MD R3 November 17, 2016 08:23
[2016-11-17] MEDS ORDERED: OXYC-392 PO (09:02)
[2016-11-17] MEDS ORDERED: PROT40TA PO (09:02)
--- NOTE | 2016-11-17 09:03 | HHI.DCPOC ---
Discharge Care Plan Diagnosis: (1) Abdominal mass Goals to Promote Your Health * To prevent worsening of your condition and complications * To maintain your health at the optimal level Directions to Meet Your Goals Take your medications as prescribed Follow your dietary instruction Follow activity as directed Keep your appointments as scheduled Take your immunizations and boosters as scheduled If your symptoms worsen call your PCP, if no PCP go to Urgent Care Center or Emergency Room Smoking is Dangerous to Your Health. Avoid second hand smoke Call the 24-hour hour crisis hotline for domestic abuse at Virgilio Dumont MD R3 November 17, 2016 09:02
[2016-11-17] MEDS: PANTOPRAZOLE SODIUM 40 MG VIAL IV PUSH SCH (10:44)
[2016-11-17] MEDS: SODIUM CHLORIDE 0.9% FLUSH 10 ML FLUSH IV FLUSH SCH (10:44)
--- NOTE | 2016-11-18 10:25 | HHI.DS ---
Discharge Summary Admission Date November 13, 2016 at 11:18 Discharge Date: November 17, 2016 Admitting Diagnosis abdominal pain, vomiting, abdominal mass (1) Abdominal mass Diagnosis: Principal (2) Hypokalemia Diagnosis: Secondary (3) Anemia Diagnosis: Secondary (4) Leukocytosis Diagnosis: Secondary (5) Alcohol use Diagnosis: Secondary Procedures MRCP 11/11 Core Needle biopsy pancreatic mass 11/12 Brief History Mrs. Tyler is a 71-year-old female with a known medical history of right breast cancer, status post lumpectomy and radiation seven years ago, who presented to the ED with complaints of mid-epigastric abdominal pain that started yesterday morning around 10am while patient was at work. Patient reports pain was burning and pressure-like in nature, intermittent throughout the day about a 5-6/10 on pain scale not interfering with her daily work activities. At around 2pm patient noticed the pain to be more constant in nature with associated nausea, becoming a 10/10 on pain scale and seemed to worsen with mobilization. She was immediately brought into ED for assessment. She remembers eating a light breakfast of cereal that morning and feeling normal prior to the pain starting. Since presentation to the ED patient states pain has diminished, status post Morphine IV and Roxicodone. Also patient did have one bout of vomiting last night. Denies any recent fever, chills, shortness of breath, cough, blurry vision, dizziness, diarrhea or blood in stool. Patient also denies any new changes to medications, denies any recent injury or any hot/cold sensitivity. CBC/BMP: 11/17/16 0513 11/17/16 0513 Significant Findings Laboratory Tests Test 11/15/16 11/15/16 11/16/16 11/16/16 11:49 17:23 02:25 12:02 Hemoglobin 8.5 GM/DL 8.1 GM/DL 7.9 GM/DL 8.6 GM/DL (11.6-15.3) (11.6-15.3) (11.6-15.3) (11.6-15.3) Red Blood Count 2.59 MIL/MM3 (4.00-5.30) Hematocrit 23.8 % (35.0-46.0) Neutrophils (%) (Auto) 72.5 % (16.0-70.0) Monocytes (%) (Auto) 11.2 % (0.0-8.0) Chloride Level 108 MEQ/L (98-107) Blood Urea Nitrogen 5 MG/DL (7-18) Creatinine 0.36 MG/DL (0.50-1.00) Phosphorus Level 2.3 MG/DL (2.5-4.9) Albumin 2.6 GM/DL (3.4-5.0) Test 11/16/16 11/17/16 18:29 05:13 Hemoglobin 7.9 GM/DL 8.6 GM/DL (11.6-15.3) (11.6-15.3) Red Blood Count 2.80 MIL/MM3 (4.00-5.30) Hematocrit 25.8 % (35.0-46.0) Monocytes (%) (Auto) 10.4 % (0.0-8.0) Creatinine 0.47 MG/DL (0.50-1.00) Albumin 2.9 GM/DL (3.4-5.0) Imaging Last Impressions Abdomen Biopsy CT 11/12/16 0600 Signed Impressions: Service Date/Time: Saturday, November 12, 2016 07:58 - CONCLUSION: Uncomplicated CT guided biopsy. Preliminary touch prep is only hemorrhage. Flow cytometry, et cetera is pending. Jose Ramon Yanez MD FACR Cholangiopancreatography MRI 11/11/16 0000 Signed Impressions: Service Date/Time: Friday, November 11, 2016 16:54 - CONCLUSION: Ascites without gallstone, common duct stone or intrahepatic noted dilatation. Generalized edema in the pancreas most prominent in the head Large abdominal mass that appears to arise within the root of the mesentery most suspicious for lymphoma. Given its size and appearance the internal necrosis laparoscopic biopsy may be these its way to obtain the diagnosis. Jose Ramon Yanez MD FACR Chest X-Ray 11/10/16 1620 Signed Impressions: Service Date/Time: Thursday, November 10, 2016 16:24 - CONCLUSION: No acute cardiopulmonary disease. Mild degenerative changes and scoliosis of the thoracic spine Oswaldo Ricks MD Abdomen/Pelvis CT 11/10/16 0000 Signed Impressions: Service Date/Time: Thursday, November 10, 2016 18:22 - CONCLUSION: 1. Diffuse enlargement involving the pancreatic head with edema predominantly involving the inferior aspect of the pancreatic head as well as large mixed density collection extending inferiorly from the region of the pancreatic head into the lower abdomen measuring 12.2 x 10.3 x 8.1 cm. The findings are suggestive of acute hemorrhagic pancreatitis. Correlation with amylase level is suggested for confirmation. 2. Ascites throughout the abdomen and pelvis. 3. Dr. Price was called with the findings of the examination at 1850 hours on 11/10/2016. Oswaldo Ricks MD PE at Discharge GENERAL: Well-appearing female patient. Walking around room. SKIN: Warm and dry. No rash. CARDIOVASCULAR: Regular rate and rhythm without murmurs, gallops, or rubs. RESPIRATORY: Breath sounds equal bilaterally. No accessory muscle use. CTAB. No adventitious sounds. GASTROINTESTINAL: Abdomen soft, non-tender, nondistended. surgical incisions with Steri-Strips intact. No surrounding erythema, edema, or drainage. No hematoma palpated. MUSCULOSKELETAL: No cyanosis, or edema. BACK: Nontender without obvious deformity. No CVA tenderness. Hospital Course 71 year-old female with h/o breast CA s/p lumpectomy admitted with h/o epigastric pain. CT ab/pelvis showed diffuse enlargement involving the pancreatic head. She was started on roxicodone for pain. Given MIVF and protonix for GI ppx. General surgery consulted. GI also consulted for MRCP. This showed edema around mass involving the head of the pancreas. Oncology was consulted, as well. They recommended core needle biopsy. Specials was consulted for this. Pathology results of core needle biopsy showed organizing hematoma. Course complicated by symptomatic anemia with hemoglobin 7.2 requiring transfusion 2 u pRBC on 11/13. Hemoglobin rhoda appropriately. By 11/17, patient's pain had significantly improved and all path results were back. She was discharged home 11/17 on norco for pain control and will need to follow up with surgical oncology in the next week. Pt Condition on Discharge: Stable Discharge Disposition: Discharge Home Discharge Instructions DIET: Follow Instructions for: As Tolerated, No Restrictions Activities you can perform: Regular-No Restrictions Virgilio Dumont MD R3 November 18, 2016 10:25
== END 2016-11-17 12:41 | disposition home or self-care (01) | DRG 987 ==
LOC: PHEFT 14:51 → PHEDA 19:25 → NEPGCP 22:05 → NEPHCDU 11-12 11:11 → NEPGCP 11-12 11:13 → OBSVTOIN 11-13 11:18 → N07B 11-13 17:01
PROVIDERS: ADMIT Family Medicine; ATTEND Family Medicine
PROC: 0WBN4ZX Excision of Female Perineum, Percutaneous Endoscopic Approach, Diagnostic (ICD-10-PCS; 2016-11-13)
PROC: 0W9G4ZZ Drainage of Peritoneal Cavity, Percutaneous Endoscopic Approach (ICD-10-PCS; principal; 2016-11-13 16:30)
DX: R19.09 Other intra-abdominal and pelvic swelling, mass and lump (principal); K66.1 Hemoperitoneum; K85.90 Acute pancreatitis without necrosis or infection, unspecified; D64.9 Anemia, unspecified; E87.6 Hypokalemia; M41.9 Scoliosis, unspecified; R18.8 Other ascites; Z79.811 Long term (current) use of aromatase inhibitors; Z85.3 Personal history of malignant neoplasm of breast; Z92.3 Personal history of irradiation
CPT/HCPCS: 36430; 49180; 71010; 74177; 74183; 76377; 76937; 77012; 80048; 80053; 80069; 82150; 82378; 82784; 82787; 83615; 83690; 83735; 84484; 85014; 85018; 85025; 85027; 85384; 85610; 85730; 86301; 86850; 86900; 86901; 86920; 88184; 88185; 88305; 88309; 88333; 93005; 96361; 96374; 96375; 96376; 99152; A9579; C9113; G0378; J0690; J2250; J2270; J2405; J2710; J3010; J3480; J7030; J7040; P9016; Q9963; Q9967